=== PATIENT | male | born 1990 | race Two or more races ===

== ENCOUNTER 2023-03-03 15:42 | Outpatient (REF) | payer MEDICAID, SELFPAY ==
--- NOTE | ~2023-03-03 | XR_ITS ---
EXAMINATION: XR LUMBOSACRAL SPINE WITH OBLIQUES CLINICAL INFORMATION: Back and left sciatic nerve pain. COMPARISON: None available. TECHNIQUE: AP, both oblique, and lateral views of the lumbar spine. Lateral view of the lumbosacral junction. FINDINGS: The vertebral bodies and posterior elements are normal. The disc spaces are preserved and the vertebral alignment is normal. The paraspinal soft tissues are normal. XR/XR lumbar spine 4V min IMPRESSION: Unremarkable lumbar spine.
== END 2023-03-03 15:43 | disposition home or self-care (01) ==
LOC: HO.HHCX 15:42
PROVIDERS: Visit Provider Internal Medicine
DX: M54.32 Sciatica, left side (principal)
CPT/HCPCS: 72110

== ENCOUNTER 2023-06-15 15:18 | Outpatient (REF) | payer MEDICAID, SELFPAY ==
--- NOTE | ~2023-06-15 | XR_ITS ---
EXAMINATION: XR LUMBOSACRAL SPINE CLINICAL INFORMATION: Left sciatic nerve pain COMPARISON: Lumbar spine February 23, 2023 TECHNIQUE: Three views of the lumbosacral spine. FINDINGS: There is a transitional vertebrae with articulation of the transverse process with the sacrum bilaterally. Normal height and alignment. No fracture. No focal bone lesion or bone destruction. Lumbar disc heights are normal. Facet joints are normal. Sacroiliac joints are normal. XR/XR lumbar spine 2-3V IMPRESSION: Normal lumbar spine.
== END 2023-06-15 15:19 | disposition home or self-care (01) ==
LOC: HO.HHCX 15:18
PROVIDERS: Visit Provider Internal Medicine
DX: M54.32 Sciatica, left side (principal)
CPT/HCPCS: 72100

== ENCOUNTER 2023-06-15 15:44 | Outpatient (REF) | payer MEDICAID, SELFPAY ==
[2023-06-15 17:34] LABS: MANUAL DIFF FLAG NO
[2023-06-15 17:44] LABS: Basophils Percent Auto 0.3 % (0-2); Eosinophils Absolute Auto 0.2 X10*3/uL (0.0-0.4); Eosinophils Percent Auto 1.9 % (0-4); Hematocrit 42.8 % (42.0-52.0); Hemoglobin 13.5 g/dl (14.0-18.0); Imm Gran Abs Auto 0.03 X10*3/uL (0.00-0.03); Imm Gran Pct Auto 0.3 % (0.0-0.4); Lymphocytes Absolute Auto 2.1 X10*3/uL (1.2-4.9); Lymphocytes Percent Auto 20.5 % (20-40); Mean Corpuscular HGB Conc 31.5 g/dl (31.0-36.0); Mean Corpuscular Hemoglobin 27.7 pg (27.0-33.0); Mean Corpuscular Volume 87.9 fL (80.0-98.0); Mean Platelet Volume 12.5 fL (9.4-12.4); Monocytes Absolute Auto 0.6 X10*3/uL (0.1-1.2); Monocytes Percent Auto 5.7 % (2-11); Neutrophils Absolute Auto 7.4 x10*3/uL (2.0-8.3); Neutrophils Percent Auto 71.3 % (45-73); Platelet Count 272 X10*3/uL (160-400); Red Blood Count 4.87 X10*6/uL (4.60-5.80); Red Cell Distribution Width 13.2 % (11.0-16.0); White Blood Count 10.4 X10*3/uL (4.8-10.8)
[2023-06-15 17:53] LABS: Alanine Aminotransferase 23 U/L (0-40); Albumin Level 4.5 g/dL (3.5-5.0); Alkaline Phosphatase 57 U/L (39-117); Anion Gap 12 (12-20); Aspartate Amino Transferase 20 U/L (5-37); Bilirubin Total 0.3 mg/dL (0.0-1.0); Blood Urea Nitrogen 14 mg/dL (9-16); Carbon Dioxide 31 mmol/L (22-29); Chloride 104 mmol/L (96-108); Cholesterol 156 mg/dL (<200); Estimated Glomerular Filt Rate > 60; Glucose Random 83 mg/dL (60-115); HDL Cholesterol 53 mg/dL (>40); LDL Cholesterol Calculated 88 mg/dL (<100); Potassium 3.7 mmol/L (3.3-5.1); Sodium 143 mmol/L (135-145); Total Protein 7.5 g/dL (6.5-8.0); Triglycerides 78 mg/dL (<150)
[2023-06-15 18:10] LABS: TSH reflex Free T4 0.55 uIU/mL (0.32-4.0)
[2023-06-16 07:00] LABS: Estimated Average Glucose 108 mg/dL; Hemoglobin A1c % 5.4 % (<6.0)
[2023-06-16 08:06] LABS: Syphilis Screen Nonreactive (Nonreactive)
[2023-06-16 08:12] LABS: HBS Num1 5.48 mIU/mL (0-7.99); HBc Num1 0.07 S/CO (0.00-0.79); HBsAGNum1 0.43 S/CO (0.00-0.99); HIV AB/AG Nonreactive (Nonreactive); HIV Num 1 0.07 S/CO (0.00-0.99); Hepatitis B Core Antibody Nonreactive (Nonreactive); Hepatitis B Surface Antigen Negative (Negative); ~HepC Num1 0.04 S/CO (0.00-0.79); ~Hepatitis B Surface Antibody NONREACTIVE (Nonreactive); ~Hepatitis C Antibody Nonreactive (Nonreactive)
[2023-06-16 11:02] LABS: CT PCR NOT DETECTED (Not Detect.); NG PCR NOT DETECTED (Not Detect.)
[2023-06-16 14:37] LABS: H Pylori Breath Test Negative (Negative)
[2023-06-19 12:08] LABS: TS Negative Control Passed; TS Panel A 0; TS Panel B 0; TS Positive Control Passed; TSpotTB Negative (Negative)
== END 2023-06-15 15:45 | disposition home or self-care (01) ==
LOC: HO.HHCL 15:44
PROVIDERS: Visit Provider Student in an Organized Health Care Education/Training Program
DX: Z00.00 Encounter for general adult medical examination without abnormal findings (principal); Z11.4 Encounter for screening for human immunodeficiency virus [HIV]; R10.13 Epigastric pain; Z20.2 Contact with and (suspected) exposure to infections with a predominantly sexual mode of transmission; Z13.29 Encounter for screening for other suspected endocrine disorder; Z13.220 Encounter for screening for lipoid disorders; Z13.1 Encounter for screening for diabetes mellitus
CPT/HCPCS: 0353U; 80053; 80061; 83013; 83036; 84443; 85025; 86481; 86704; 86706; 86780; 86803; 87340; 87389

== ENCOUNTER 2023-12-04 14:47 | Outpatient (REF) | payer MEDICAID, SELFPAY | END 2023-12-04 14:48 | disposition home or self-care (01) | LOC: HO.HHCL 14:47 | PROVIDERS: Visit Provider Student in an Organized Health Care Education/Training Program | DX: Z13.89 Encounter for screening for other disorder (principal) ==

== ENCOUNTER 2023-12-18 01:26 | Emergency (ER) | payer MEDICAID, SELFPAY ==
[2023-12-18] VITALS (7 sets, daily range): BP systolic 101–131; BP diastolic 60–82; PULSE 79–107; RESP 13–16; TEMP 37–37.2; O2SAT 99–100; BMI 24.4
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
[2023-12-18 01:56] LABS: MANUAL DIFF FLAG NO
[2023-12-18 01:57] LABS: Basophils Percent Auto 0.2 % (0-2); Eosinophils Absolute Auto 0.2 X10*3/uL (0.0-0.4); Eosinophils Percent Auto 1.9 % (0-4); Hematocrit 39.5 % (42.0-52.0); Hemoglobin 12.8 g/dl (14.0-18.0); Imm Gran Abs Auto 0.03 X10*3/uL (0.00-0.03); Imm Gran Pct Auto 0.3 % (0.0-0.4); Lymphocytes Absolute Auto 1.9 X10*3/uL (1.2-4.9); Lymphocytes Percent Auto 19.9 % (20-40); Mean Corpuscular HGB Conc 32.4 g/dl (31.0-36.0); Mean Corpuscular Hemoglobin 27.9 pg (27.0-33.0); Mean Corpuscular Volume 86.1 fL (80.0-98.0); Mean Platelet Volume 10.8 fL (9.4-12.4); Monocytes Absolute Auto 0.7 X10*3/uL (0.1-1.2); Monocytes Percent Auto 7.4 % (2-11); Neutrophils Absolute Auto 6.8 x10*3/uL (2.0-8.3); Neutrophils Percent Auto 70.3 % (45-73); Platelet Count 264 X10*3/uL (160-400); Red Blood Count 4.59 X10*6/uL (4.60-5.80); Red Cell Distribution Width 13.2 % (11.0-16.0); White Blood Count 9.6 X10*3/uL (4.8-10.8)
[2023-12-18 02:07] LABS: Ethanol 176 mg/dL
[2023-12-18 02:11] LABS: Alanine Aminotransferase 11 U/L (0-40); Albumin Level 4.6 g/dL (3.5-5.0); Alkaline Phosphatase 52 U/L (39-117); Anion Gap 14 (12-20); Aspartate Amino Transferase 15 U/L (5-37); Bilirubin Direct < 0.2 mg/dL (0.0-0.5); Bilirubin Total 0.2 mg/dL (0.0-1.0); Blood Urea Nitrogen 14 mg/dL (9-16); Calcium 9.2 mg/dL (8.4-10.2); Carbon Dioxide 26 mmol/L (22-29); Chloride 107 mmol/L (96-108); Creatinine Clr Calc Pharmacy 104.8; Estimated Glomerular Filt Rate > 60; Glucose Random 92 mg/dL (60-115); Potassium 3.4 mmol/L (3.3-5.1); Sodium 144 mmol/L (135-145); Total Protein 7.6 g/dL (6.5-8.0)
[2023-12-18] MEDS: 0.9 % Sodium Chloride 1,000 ML 999 ML IV (02:17)
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
[2023-12-18 02:32] LABS: Amphetamine Screen Urine Not Detected (Not Detect); Barbiturates, Urine Not Detected (Not Detect); Benzodiazepines Screen Urine Not Detected (Not Detect); Buprenorphine Scr Positive (Not Detect); Cannabinoid Screen Urine POSITIVE (Not Detect); Cocaine Screen Urine Not Detected (Not Detect); Fentanyl, urine Not Detected (Not Detect); Methadone Screen, Urine Not Detected (Not Detect); Opiate Screen Urine Not Detected (Not Detect); Oxycodone Screen Urine Not Detected (Not Detect); Phencyclidine Screen Urine Not Detected (Not Detect)
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
== END 2023-12-18 05:34 | disposition home or self-care (01) ==
PROVIDERS: Emergency Provider Emergency Medicine Emergency Medical Services
DX: S81.832A Puncture wound without foreign body, left lower leg, initial encounter (principal); M79.605 Pain in left leg; X95.9XXA Assault by unspecified firearm discharge, initial encounter; Y92.410 Unspecified street and highway as the place of occurrence of the external cause; Y99.8 Other external cause status; Z79.899 Other long term (current) drug therapy
CPT/HCPCS: 36415; 73552; 80048; 80076; 80307; 85025; 96360; 99284

== ENCOUNTER 2023-12-19 14:23 | Outpatient (REF) | payer MEDICAID, SELFPAY ==
[2023-12-19 17:14] LABS: Folate 5.5 ng/mL (> or = 4.0); Vitamin B12 258 pg/mL (200-900)
== END 2023-12-19 14:24 | disposition home or self-care (01) ==
LOC: HO.HHCL 14:23
PROVIDERS: Visit Provider Student in an Organized Health Care Education/Training Program
DX: Z00.00 Encounter for general adult medical examination without abnormal findings (principal); E53.8 Deficiency of other specified B group vitamins
CPT/HCPCS: 36415; 82607; 82746

== ENCOUNTER 2024-02-27 15:31 | Outpatient (REF) | payer MEDICAID, SELFPAY ==
[2024-02-27 16:11] LABS: Hematocrit 37.2 % (42.0-52.0); Hemoglobin 12.1 g/dl (14.0-18.0); Mean Corpuscular HGB Conc 32.5 g/dl (31.0-36.0); Mean Corpuscular Hemoglobin 27.9 pg (27.0-33.0); Mean Corpuscular Volume 85.9 fL (80.0-98.0); Mean Platelet Volume 11.8 fL (9.4-12.4); Platelet Count 257 X10*3/uL (160-400); Red Blood Count 4.33 X10*6/uL (4.60-5.80); Red Cell Distribution Width 12.6 % (11.0-16.0); White Blood Count 11.4 X10*3/uL (4.8-10.8)
[2024-02-27 16:28] LABS: Estimated Average Glucose 108 mg/dL; Hemoglobin A1c % 5.4 % (<6.0)
[2024-02-27 16:43] LABS: Alanine Aminotransferase 10 U/L (0-40); Albumin Level 4.6 g/dL (3.5-5.0); Alkaline Phosphatase 58 U/L (39-117); Anion Gap 12 (12-20); Aspartate Amino Transferase 16 U/L (5-37); Bilirubin Total 0.4 mg/dL (0.0-1.0); Blood Urea Nitrogen 11 mg/dL (9-16); Calcium 9.4 mg/dL (8.4-10.2); Carbon Dioxide 28 mmol/L (22-29); Chloride 106 mmol/L (96-108); Estimated Glomerular Filt Rate > 60; Glucose Random 97 mg/dL (60-115); Iron 69 mcg/dL (45-160); Lactate Dehydrogenase 157 U/L (118-273); Percent Iron Saturation 29 % (15-50); Potassium 3.3 mmol/L (3.3-5.1); Sodium 143 mmol/L (135-145); Total Iron Binding Capacity 241 mcg/dL (228-428); Total Protein 7.3 g/dL (6.5-8.0); Unsaturated Iron Binding 172 ug/dL
[2024-02-27 17:03] LABS: Ferritin 137 ng/mL (20-250); TSH reflex Free T4 1.53 uIU/mL (0.32-4.0)
[2024-02-27 17:14] LABS: Folate 6.5 ng/mL (> or = 4.0); Vitamin B12 359 pg/mL (200-900)
[2024-02-28 08:29] LABS: Syphilis Screen Nonreactive (Nonreactive)
[2024-02-28 08:57] LABS: HBS Num1 3.75 mIU/mL (0-7.99); HBc Num1 0.07 S/CO (0.00-0.79); HBsAGNum1 0.34 S/CO (0.00-0.99); HIV AB/AG Nonreactive (Nonreactive); HIV Num 1 0.05 S/CO (0.00-0.99); Hepatitis B Core Antibody Nonreactive (Nonreactive); Hepatitis B Surface Antigen Negative (Negative); ~HepC Num1 0.06 S/CO (0.00-0.79); ~Hepatitis B Surface Antibody NONREACTIVE (Nonreactive); ~Hepatitis C Antibody Nonreactive (Nonreactive)
[2024-02-28 12:14] LABS: CT PCR NOT DETECTED (Not Detect.); NG PCR NOT DETECTED (Not Detect.)
[2024-03-01 05:54] LABS: TS Negative Control Passed; TS Panel A 0; TS Panel B 0; TS Positive Control Passed; TSpotTB Negative (Negative)
== END 2024-02-27 15:32 | disposition home or self-care (01) ==
LOC: HO.HHCL 15:31
PROVIDERS: Visit Provider Student in an Organized Health Care Education/Training Program
DX: A64 Unspecified sexually transmitted disease (principal); D64.9 Anemia, unspecified; R63.4 Abnormal weight loss
CPT/HCPCS: 36415; 80053; 82607; 82728; 82746; 83036; 83540; 83615; 84443; 85027; 86481; 86704; 86706; 86780; 86803; 87340; 87389; 87491; 87591

== ENCOUNTER 2024-07-08 14:49 | Outpatient (REF) | payer MEDICAID, SELFPAY ==
[2024-07-08 16:21] LABS: MANUAL DIFF FLAG NO
[2024-07-08 16:26] LABS: Basophils Percent Auto 0.3 % (0-2); Eosinophils Absolute Auto 0.4 X10*3/uL (0.0-0.4); Eosinophils Percent Auto 5.9 % (0-4); Hemoglobin 13.5 g/dl (14.0-18.0); Imm Gran Abs Auto 0.02 X10*3/uL (0.00-0.03); Imm Gran Pct Auto 0.3 % (0.0-0.4); Mean Corpuscular HGB Conc 32.1 g/dl (31.0-36.0); Mean Corpuscular Hemoglobin 27.8 pg (27.0-33.0); Mean Corpuscular Volume 86.4 fL (80.0-98.0); Mean Platelet Volume 12.4 fL (9.4-12.4); Monocytes Absolute Auto 0.6 X10*3/uL (0.1-1.2); Monocytes Percent Auto 8.7 % (2-11); Neutrophils Absolute Auto 3.8 x10*3/uL (2.0-8.3); Neutrophils Percent Auto 55.8 % (45-73); Platelet Count 227 X10*3/uL (160-400); Red Blood Count 4.86 X10*6/uL (4.60-5.80); Red Cell Distribution Width 13.2 % (11.0-16.0); Retic HGB Equivalent 31.9 pg (30.0-35.0); Reticulocyte Percent 0.7 % (0.5-1.8); Reticulocytes Absolute 0.035 X10*6/uL (0.026-0.095); White Blood Count 6.8 X10*3/uL (4.8-10.8)
[2024-07-08 17:05] LABS: Erythrocyte Sedimentation Rate 2 MM/HR (0-15)
[2024-07-08 17:18] LABS: Haptoglobin 138 mg/dL (14-258)
[2024-07-08 17:29] LABS: Alanine Aminotransferase 16 U/L (0-40); Albumin Level 4.6 g/dL (3.5-5.0); Alkaline Phosphatase 56 U/L (39-117); Anion Gap 9 (12-20); Aspartate Amino Transferase 18 U/L (5-37); Bilirubin Total 0.4 mg/dL (0.0-1.0); Blood Urea Nitrogen 13 mg/dL (9-16); C Reactive Protein < 0.10 mg/dL (< or = 0.50); Calcium 9.5 mg/dL (8.4-10.2); Carbon Dioxide 29 mmol/L (22-29); Chloride 105 mmol/L (96-108); Estimated Glomerular Filt Rate > 60; Glucose Random 106 mg/dL (60-115); Iron 116 mcg/dL (45-160); Percent Iron Saturation 42 % (15-50); Potassium 3.6 mmol/L (3.3-5.1); Sodium 139 mmol/L (135-145); Total Iron Binding Capacity 276 mcg/dL (228-428); Total Protein 7.3 g/dL (6.5-8.0); Unsaturated Iron Binding 160 ug/dL
[2024-07-08 17:36] LABS: Ferritin 187 ng/mL (20-250)
[2024-07-08 17:54] LABS: Folate 4.8 ng/mL (> or = 4.0); Vitamin B12 254 pg/mL (200-900)
== END 2024-07-08 14:50 | disposition home or self-care (01) ==
LOC: HO.HHCL 14:49
PROVIDERS: Visit Provider Student in an Organized Health Care Education/Training Program
DX: D64.9 Anemia, unspecified (principal)
CPT/HCPCS: 36415; 80053; 82607; 82728; 82746; 83010; 83540; 85025; 85045; 85652; 86140

== ENCOUNTER 2024-12-11 12:08 | Outpatient (REF) | payer MEDICAID, SELFPAY ==
--- OUTSIDE RECORDS SUMMARY | 2024-12-11 13:24 | XMS_ITS | Encounter Summary ---
Author Organization [employer] Address [address] [facility] [address] [place] [address] Care Team Providers Care Box Storage Worker Name Role Phone Carmella Sullivan MD Primary Care Pro vider Reason for Referral * Imaging (STAT) - Authorized Specialty Diagnoses / Procedures Referred By Contac t Referred To Contact Radiology Diagnoses Epigastric pain Weight loss Procedures CT Abdomen Pelvis w/o Contrast Carmella Sullivan MD [address] [place] [address] Phone: tel: fax: [address] Phone: tel: fax: Referral ID Status Reason Start Date Expiration Date V isits Requested Visits Authorized [id number] Authorized 12/11/2024 12/11/2025 1 1 * Consultation (Routine) - Pending Review Specialty Diagnoses / Procedures Referred By Joanie t Referred To Contact Gastroenterology Diagnoses Epigastric pain Carmella Sullivan MD [address] [place] [address] Phone: tel: fax: Referral ID Status Reason Start Date Expiration Date Visits Requested Visits Authorized [id number] Pending Review Specialty Services Required 12/11/2024 12/11/2025 1 1 Encounter Details Date Type Department Care Team (Late st Contact Info) Description 12/11/2024 10:15 AM EDT Office Visit [facility] [address] [place] [phone] Carmella Sullivan MD [address] [place] [address] Annual physical exam (Primary Dx); Epigastric pain; Weight loss Social History Tobacco Use Types Packs/Day Years Used Date Smoking Tobacco: Never Passive Smoke Exposure: Never Smokeless Tobacco: Never Tobacco Cessation:Counseling Given: Not Answered Alcohol Use Standard Drinks/Week Comments Yes 0 (1 standard drink = 0.6 oz pur e alcohol) 5 glasses of rum on weekends Alcohol Answer Date Recorded How often do you have a drink containing alcohol ? 1 06/05/2023 How many drinks containing a lcohol do you have on a typical day when you are drinking? 0 06/05/2023 How often do you have six or more drinks on one occasion? 0 06/05/2023 Depression Answer Date Recorded Patient Health Questionnaire-9 Score 0 12/11/2024 Patient Health Questionnaire-9 Score 0 12/11/2024 Last PHQ-9: Questionnaire Data Not on file 0 12/11/2024 Housing Stability Answer Date Recorded What is your housing situation today? I have elysewon [place] 06/13/[address] you li ve. Do you have problems with any of the following? None of the above 06/13/2024 Food Insecurity Answer Date Recorded Within the past 12 months, y ou worried that your food would run out before you got money to buy more: Never True 06/13/2024 Within the past 12 months,th e food you bought just didn't last and you didn't have enough money to get more: Never True 02/2024 Transportation Answer Date Recorded In the past 12 months, has l ack of transportation kept you from medical appts, meetings, work or from getting things needed for daily living? No 06/13/2024 Utilities Answer Date Recorded In the past 12 months, has t he electric, gas, oil or water company threatened to shut off services in your home? No 06/13/2024 Depression Answer Date Recorded Patient Health Questionnaire-2 Score 0 12/11/2024 Internet Access Answer Date Recorded Internet Access Q1 Yes 06/13/2024 Internet Access Q2 Not on file 06/13/2024 Sex and Gender Information Value Date Recorded Sex Assigned at Male 10/21/2022 2:02 PM EDT Legal Sex Male 1:23 PM EST Gender Identity Male 10/21/2022 2:02 PM EDT Sexual Orientation Straight 10/21/2022 2: 02 PM EDT documented as of this encounter Last Filed Vital Signs Vital Sign Reading Time Taken Comments Blood Pressure 112/81 12/11/2024 10:28 AM EDT Pulse 77 12/11/2024 10:28 AM EDT Temperature 36.6 ??C (97.8 ??F) 12/11/2024 1 0:28 AM EDT Respiratory Rate 20 12/11/2024 10:2 8 AM EDT Oxygen Saturation 98% 12/11/2024 10: 28 AM EDT Inhaled Oxygen Concentration - - Weight 68.4 kg (150 lb 12.8 oz) 025 10:28 AM EDT Height 185.4 cm (6' 1 ) 12/11/2024 10:2 8 AM EDT Body Mass Index 19.9 12/11/2024 10:28 AM EDT documented in this encounter Plan of Treatment Upcoming Encounters Date Type Department Care Team (Late st Contact Info) Description 12/19/2024 3:30 PM EDT Office Visit [facility] [address] [place] [phone] Shea Dougherty MD [address] [place] [phone] 12/24/2024 10:00 AM EDT Office Visit [facility] [address] [place] [address] Jenifer Teixeira, DDS [address] [place] [address] 12/31/2024 1:30 PM EDT Office Visit [facility] [address] [place] [address] Carmella Sullivan MD [address] [place] [address] 01/16/2025 3:45 PM EDT Office Visit [facility] [address] [place] [address] Shea Dougherty MD [address] [place] [address] Scheduled Orders Name Type Priority Associated Diagnoses Orde r Schedule CBC Lab Routine Annual physical exam Expected: 12/11/2024 (Approximate), Expires: 12/11/2025 Chlamydia/N. Gonorrhoeae RNA, TMA, Urogenitial Microbiology Routine Annual physical exam Expected: 12/11/2024 (Approximate), Expires: 12/11/2025 Comprehensive Metabolic Panel Lab Routine Annual physical exam Expected: 12/11/2024 (Approximate), Expires: 12/11/2025 Hemoglobin A1c Lab Routine Annual physical exam Expected: 12/11/2024 (Approximate), Expires: 12/11/2025 Hepatitis B Core Antibody, Total Lab Routine Annual physical exam Expected: 12/11/2024 (Approximate), Expires: 12/11/2025 Hepatitis B Surface Antibody, Qualitative Lab Routine Annual physical exam Expected: 12/11/2024 (Approximate), Expires: 12/11/2025 Hepatitis B surface antigen, EIA Lab Routine Annual physical exam Expected: 12/11/2024 (Approximate), Expires: 12/11/2025 Hepatitis C Antibody with Reflex to HCV, RNA, Quantitative, Real-Time PCR Lab Routine Annual physical exam Expected: 12/11/2024 (Approximate), Expires: 12/11/2025 HIV-1/2 Antigen and Antibodies, Fourth Generation, with Reflexes Lab Routine Annual physical exam Expected: 12/11/2024 (Approximate), Expires: 12/11/2025 Lipid Panel, Standard Lab Routine Annual physical exam Expected: 12/11/2024 (Approximate), Expires: 12/11/2025 Syphilis Screen Lab Routine Annual physical exam Expected: 12/11/2024 (Approximate), Expires: 12/11/2025 TSH with Reflex to Free T4 Lab Routine Annual physical exam Expected: 12/11/2024 (Approximate), Expires: 12/11/2025 Iron And Total Iron Binding Capacity Lab Routine Annual physical exam Expected: 12/11/2024 (Approximate), Expires: 12/11/2025 Ferritin Lab Routine Annual physical exam Expected: 12/11/2024, Expires: 12/11/2025 T-SPOT??.TB Lab Routine Weight loss Expected: 12/11/2024 (Approximate), Expires: 12/11/2025 Urinalysis, Complete, with Reflex to Culture Lab Routine Weight loss Expected: 12/11/2024 (Approximate), Expires: 12/11/2025 Helicobacter pylori, Urea Breath Test Lab Routine Epigastric pain Expected: 12/11/2024 (Approximate), Expires: 12/11/2025 CT Abdomen Pelvis w/o Contrast Imaging STAT Epigastric pain Weight loss Expected: 12/11/2024, Expires: 12/11/2025 Scheduled Referrals Name Type Priority Associated Diagnoses Order Schedule Referral to Gastroenterology Outpatient Referral Routine Epigastric pain Expected: 12/11/2024 (Approximate), Expires: 12/11/2025 documented as of this encounter Goals Goal Patient Goal Type Associated Problems Recent Progress Patient-Stated? Author Keep your medical appointments Lifestyle On track( 025 2:13 PM EDT) Meño Kruger, DONALDO documented as of this encounter Visit Diagnoses Diagnosis Annual physical exam- Primary Routine general medical examination at a health care facility Epigastric pain Abdominal pain, epigastric Weight loss Loss of weight documented in this encounter Additional Health Concerns Assessment Noted Time PHQ-9 Depression Total Score: 0 12/12/19 25 10:29 AM EDT documented as of this encounter Care Teams Box Storage Worker Relationship Specialty Start Date End Date Carmella Sullivan MD [address] [place] [phone] PCP - General Internal Medicine 06/15/23 documented as of this encounter
--- OUTSIDE RECORDS SUMMARY | 2024-12-11 13:24 | XMS_ITS | Encounter Summary ---
Author Organization [employer] Address [address] [facility] [address] [place] [address] Care Team Providers Care Junior Technical Writer Name Role Phone Carmella Sullivan MD Primary Care Pro vider Encounter Details Date Type Department Care Team (Late st Contact Info) Description 03/07/2023 [facility] Management [address] [place] [address] Carmella Otero MD [address] [place] [address] Social History Tobacco Use Types Packs/Day Years Used Date Smoking Tobacco: Never Passive Smoke Exposure: Never Smokeless Tobacco: Never Sex and Gender Information Value Date Recorded Sex Assigned at Male 10/21/2022 2:02 PM EDT Legal Sex Male 1:23 PM EST Gender Identity Male 10/21/2022 2:02 PM EDT Sexual Orientation Straight 10/21/2022 2: 02 PM EDT documented as of this encounter Plan of Treatment Upcoming Encounters Date Type Department Care Team (Late st Contact Info) Description 12/19/2024 3:30 PM EDT Office Visit [facility] [address] [place] [phone] Shea Dougherty MD [address] [place] [address] 12/24/2024 10:00 AM EDT Office Visit [facility] [address] [place] [address] Jenifer Teixeira DDS [address] [place] [address] 12/31/2024 1:30 PM EDT Office Visit [facility] [address] [place] [phone] Carmella Sullivan MD [address] [place] [address] 01/16/2025 3:45 PM EDT Office Visit [address] [address] Shea Dougherty MD [address] [place], [place] [phone] documented as of this encounter Visit Diagnoses Not on filedocumented in this encounter Care Teams Junior Technical Writer Relationship Specialty Start Date End Date Carmella Sullivan MD [address] [place] [phone] PCP - General Internal Medicine 06/15/23 documented as of this encounter
--- OUTSIDE RECORDS SUMMARY | 2024-12-11 13:24 | XMS_ITS | Encounter Summary ---
Author Organization [employer] Address [address] [place] [address] Care Team Providers Care Printing Gray Cloth Tender Name Role Phone Carmella Sullivan MD Primary Care Pro vider Encounter Details Date Type Department Care Team (Latest Contact Info) Description 12/11/2024 Travel Social History Tobacco Use Types Packs/Day Years Used Date Smoking Tobacco: Never Passive Smoke Exposure: Never Smokeless Tobacco: Never Alcohol Use Standard Drinks/Week Comments Yes 0 [...] Description 12/19/2024 3:30 PM EDT Office Visit [facility] [address] [place] [phone] Shea Dougherty MD [address] [place] [address] 12/24/2024 10:00 AM EDT Office Visit [facility] [address] [place] [address] Jenifer Teixeira DDS [address] [place] [address] 12/31/2024 1:30 PM EDT Office Visit [facility] [address] [place] [phone] Carmella Sullivan MD [address] [place] [phone] 01/16/2025 3:45 PM EDT Office Visit [address] [address] Shea Dougherty MD [address] [place] [phone] documented as of this encounter Goals Goal Patient Goal Type Associated Problems Recent Progress Patient-Stated? Author Keep your medical appointments Lifestyle On track( 025 2:13 PM EDT) Meño Kruger RN documented as of this encounter Visit Diagnoses Not on filedocumented in this encounter Additional Health Concerns Assessment Noted Time PHQ-9 Depression Total Score: 0 12/12/19 25 10:29 AM EDT documented as of this encounter Care Teams Printing Gray Cloth Tender Relationship Specialty Start Date End Date Carmella Sullivan MD [address] [place] [phone] PCP - General Internal Medicine 06/15/23 documented as of this encounter
--- OUTSIDE RECORDS SUMMARY | 2024-12-11 13:24 | XMS_ITS | Clinical Summary ---
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 Buprenorphine HCl-Naloxone HCl (Suboxone) 8-2 MG SL filmIndications: Opioid dependence, uncomplicated (CMS/HCC) Place 1 Film under the tongue 2 times daily for 28 days. 56 Film 025 2024 Active psyllium (Metamucil Smooth Texture) 58.6 % powder Take 5.12 g (3 g of fiber) by mouth 2 times daily. 283 g 2 025 2025 Active docusate sodium (Colace) 100 MG capsule Take 1 tab po bid prn constipation 60 capsule 3 Active omeprazole (PriLOSEC) [address] capsuleIndicatio ns:Epigastric pain Take 1 capsule (40 mg) by mouth before breakfast. Do not crush or chew. 30 capsule 2 025 2025 Active Emollient (CeraVe Daily Moisturizing) lotion Apply 1 Application topically Once per day. 87 mL 1 024 2024 Discontinued(O ther) Buprenorphine HCl-Naloxone HCl (Suboxone) 8-2 MG SL filmIndications: Opioid dependence, uncomplicated (CMS/HCC) Place 1 Film under the tongue 2 times daily for 28 days. 56 Film 025 2024 Discontinued(R eorder (will not trigger notification to Pharmacy)) Buprenorphine HCl-Naloxone HCl (Suboxone) 8-2 MG SL filmIndications: Opioid dependence, uncomplicated (CMS/HCC) Place 1 Film under the tongue 2 times daily for 28 days. 56 Film 025 2024 Discontinued(R eorder (will not trigger notification to Pharmacy)) Active Problems Problem Noted Date Diagnosed Date Opioid use disorder in remission 10/29/2024 Weight loss 01/23/2024 Health care maintenance 06/17/2023 Uncomplicated opioid abuse 06/05/2023 Depression, major, single episode, moderate 11/06 Assessment & Plan (03/01/2023 8:29 AM EDT): Assessment: Jeffrey was engaged with active reflective listening and open-ended questions. Assessed symptoms, risks, and social supports with direct questions. Discussed current symptoms intensity and frequency. Emotions were normalized and validated. He identified his job as coping mechanisms and his children as protective factors. Provided psychoeducation around grief process and the importance of allowing himself to feel this emotions. Discussed OP therapy, but Jeffrey is not ready to engage in MH services, he agreed to follow up with me during his OBAT appts. . Provided education around integrated medicine and the options of follow up BE's as needed. Provided contact information should questions or concerns arise. Plan: Jeffrey will continue to engage in effective coping mechanisms that has worked for him and will implement what we discussed today about grief and emotions. Patient with anxiety, restless, poor appetite, sleep disturbance, guilt, sadness, lack of motivation. He denies SI, HI, AVH or self-harm. He lives alone, currently in probation. Patient will benefit from Follow up with this parts data writer during his OBAT appts. At this time Jeffrey Bradley meets criteria for Visit Diagnoses: Problem List Items Addressed This Visit Other Adjustment disorder with mixed anxiety and depressed mood Patient ready to address current needs No Strengths include willing to keep connected with this parts data writer. PLAN: 1. Follow up with [facility]: Recommended for follow-up: during OBAT appts 2. Patient goal is to learn to process his son and maintain sobriety. 3. Behavioral Recommendations a. Use of coping skills b. Keep his OBATs appts c. [facility] follow up for support as needed. Resolved Problems Problem Noted Date Diagnosed Date Resolved Date Abdominal pain, epigastric 06/17/2023 0 01/23/2024 Left sciatic nerve pain 03/03/2023 0603/2024 Assessment & Plan (03/03/2023 3:40 PM EDT): Apply heat on affected area Reactive depression 11/25/2022 11/26/19 23 Encounters * This document contains information received from the source organization and may not represent a complete record from that organization. Date Type Department Care Team Description 12/11/2024 10:15 AM EDT Office Visit [facility] [address] [place] [address] Carmella Sullivan MD Annual physical exam (Primary Dx); Epigastric pain; Weight loss 12/11/2024 Travel 12/10/2024 Telephone [facility] [address] [place] [address] Carmella Sullivan MD CHART PREP 12/09/2024 Refill [facility] [address] [place] [address] Shea Dougherty MD Opioid dependence, uncomplicated (CMS/HCC) 11/28/2024 Patient Outreach [facility] [address] [place], [place] [phone] Carmella Sullivan MD Pre-visit Planning (SDOH negative, Tobacco screening negative. ) 11/21/2024 3:45 PM EDT Office Visit [facility] [address] [place] [address] Shea Dougherty MD Opioid type dependence, continuous (CMS/HCC) (Primary Dx) 11/21/2024 Travel 11/12/2024 Refill [facility] [address] [place] [address] Shea Dougherty MD Opioid dependence, uncomplicated (CMS/HCC) 10/24/2024 3:00 PM EDT Clinical Support [facility] [address] [place] [address] Meño Aggarwal, DONALDO Opioid dependence, uncomplicated (CMS/HCC) (Primary Dx) 10/24/2024 Travel 10/18/2024 Population Health Risk Score [facility] ([facility] Department [address] [phone] Provider, Population Health Generic 10/15/2024 Refill [facility] [address] [place] [address] Shea Dougherty MD Opioid dependence, uncomplicated (CMS/HCC) 10/14/2024 Telephone [facility] [address] [place] [phone] Carmella Sullivan MD May recall 09/25/2024 10:35 AM EST Clinical Support [facility] [address] [place] [address] Meño Aggarwal, DONALDO Opioid type dependence, continuous (CMS/HCC) (Primary Dx) 09/25/2024 Travel 09/20/2024 Refill [facility] [address] [place] [phone] Meño Aggarwal RN Opioid dependence, uncomplicated (CMS/HCC) from Last 3 Months Immunizations Name Administration Dates Next Due Hep A, Adult 11/25/2022 Influenza injectable quadrivalent preservative f ree 06/15/2023 Tdap 06/15/2023 Family History Medical History Relation Name Comments DM2,depression Mother Leukemia Son Relation Name Status Comments Mother Son Social History Tobacco Use Types Packs/Day Years [...] is your housing situation today? I have elyse willingham 06/13/[address] you [...] Orientation Straight 10/21/2022 2: 02 PM EDT Last Filed Vital Signs Vital Sign Reading [...] Mass Index 19.9 12/11/2024 10:28 AM EDT Plan of Treatment Upcoming Encounters Date Type Department Care Team (Late st Contact Info) Description 12/19/2024 3:30 PM EDT Office Visit [facility] [address] [place] [phone] Shea Dougherty MD [address] [place] [address] 12/24/2024 10:00 AM EDT Office Visit [facility] AD[facility] [address] [place] [address] Jenifer Teixeira, DDS [address] [place] [address] 12/31/2024 1:30 PM EDT Office Visit [facility] [address] [place] [address] Carmella Sullivan MD [address] [place] [address] 01/16/2025 3:45 PM EDT Office Visit [facility] [address] [place] [address] Shea Dougherty MD [address] [place] [address] Health Maintenance Due Date Last Done Comments Family Planning (PISQ) 2004 Hepatitis B Vaccines (1 of 3 - 19+ 3-dose series) 2008 COVID-19 Vaccine (2023-2 5 season) 2024 Influenza Vaccine (#1) 2024 06/15/2023 Dental Oral Exam 11/23/2024 05/24/2024, 05/10/2024 Dental Prophylaxis 11/23/2024 05/24/2024 Dental X-Ray: Bitewings 05/11/2025 05/10/2024 Alcohol/Substance Use Screening 06/20/2025 06/20/2024 SDOH Screening 11/28/2025 11/28/2024 Depression Screening 12/11/2025 12/11/2024, 12/11/2024 Tobacco Screening 12/11/2025 12/11/2024 Dental X-Ray: Full Mouth 05/11/2027 05/10/2024 Lipid Panel 06/15/2028 06/15/2023 DTaP/Tdap/Td Vaccines (2 - T d or Tdap) 06/15/2033 06/15/2023 Zoster Vaccines (1 of 2) 2039 RSV Patients and Patients Aged 60 years or older (1 - 1-dose 75+ series) 2064 Hepatitis A Vaccines Aged Out 11/25/2022 No long er eligible based on patient's age to complete this topic HIV Screening Completed 02/27/2024, 06/15/2023, 11/04/2022 Hepatitis C Screening Completed 02/27/2024 , 06/15/2023, 11/04/2022 HIB Vaccines Aged Out No longer eligi ble based on patient's age to complete this topic HPV Vaccines Aged Out No longer eligi ble based on patient's age to complete this topic IPV Vaccines Aged Out No longer eligi ble based on patient's age to complete this topic Meningococcal Vaccine Aged Out No tono regina eligible based on patient's age to complete this topic Pneumococcal Vaccine: Pediatrics (0 to 5 Years) and At-Risk Patients (6 to 49) Years) Aged Out No longer eligible b ased on patient's age to complete this topic RSV under 20 months Aged Out No longe r eligible based on patient's age to complete this topic Rotavirus Vaccines Aged Out No longer eligible based on patient's age to complete this topic Goals Goal Patient Goal Type Associated Problems Recent Progress Patient-Stated? Author Keep your medical appointments Lifestyle On track( 025 2:13 PM EDT) No Meño Aggarwal, premium representative Procedure Name Priority Date/Time Associated Diagnosis Comments POCT BALJINDER-14 URINE DRUG SCREEN Routine 11/21/2024 12:59 PM EDT Opioid type dependence, continuous (CMS/HCC) POCT BALJINDER-14 URINE DRUG SCREEN Routine 10/24/2024 1:41 PM EDT Opioid dependence, uncomplicated (CMS/HCC) POCT BALJINDER-14 URINE DRUG SCREEN Routine 09/25/2024 11:31 AM EST Opioid type dependence, continuous (CMS/HCC) PROPHYLAXIS - ADULT Routine 05/24/2024 8 :00 AM EDT Dental calculus Dental plaque PERIODIC ORAL EVALUATION - ESTABLISHED PATIENT Routine 05/24/2024 8:00 AM EDT INTRAORAL - COMPLETE SERIES OF RADIOGRAPHIC IMAGES Routine 05/10/2024 10:30 AM EDT Tipped teeth Encounter for dental examination Dental caries Dental calculus HEPATITIS C AB W/REFL TO HCV RNA, QN, PCR Routine 02/27/2024 3:38 PM EDT STI (sexually transmitted infection) HIV 1/2 ANTIGEN/ANTIBODY, FOURTH GENERATION W/RFL Routine 02/27/2024 3:38 PM EDT STI (sexually transmitted infection) LIPID PANEL, STANDARD Routine 06/15/2023 3:46 PM EST Annual physical exam from Last 3 Months or Most Recently Relevant to Health Maintenance Results * POCT BALJINDER-14 Urine Drug Screen (11/21/2024 12:59 PM EDT) Only the most recent of3 resultswithin the time period is included. THC Positive Cocaine Screen, Urine Negative Opiate Screen, Urine Negative Methamphetamine Screen Urine Negative Amphetamine Screen, Urine Negative Benzodiazepines Screen, Urine Negative Barbiturate Screen, Urine Negative Methadone Screen, Urine Negative Buprenophine Screen, Urine Positive TCA, Urine Negative MDMA Urine Negative ng/mL Oxycodone Screen, Urine Negative Phencyclidine (PCP), Urine Negative Fentanyl, Urine Negative Urine Urine specimen obtained by clean catch procedure / Unknown 11/21/2024 12:59 PM EDT Shea Dougherty MD POINT OF CARE TEST ENTER/MORENA T ORDERABLES Final Result * Hepatitis C Antibody with Reflex to HCV, RNA, Quantitative, Real-Time PCR (02/27/2024 3:38 PM EDT) Hepatitis C Antibody Nonreactive Nonreactive [facility] Comment:Antibodies to HCV no t detected; does not exclude early acuteHCV infection. Blood Venous blood specimen / Unknown 02/27/2024 3:38 PM EDT 02/27/2024 3:58 PM EDT Carmella Castro MD LAB BLOOD ORDERAB LES Final Result Performing Organization Address City/[facility]/ZIP Co de Phone Number [facility] [address] [place] [phone] * HIV-1/2 Antigen and Antibodies, Fourth Generation, with Reflexes (02/27/2024 3:38 PM EDT) HIV AB/AG Nonreactive Nonreactive [facility] Comment:HIV-1 p24 Ag and/or HIV-1/HIV-2 Ab not detected.A test result that is nonreactive does not exclude thepossibility of exposure to or infection with HIV-1 and/orHIV-2. Nonreactive results in this assay for individualswith prior exposure to HIV-1 and/or HIV-2 may be due toantigen and antibody levels that are below the limit ofdetection of this assay.The [employer] HIV Ag/Ab Combo assay result andsupplemental assay results should be interpreted inconjunction with the patient's clinical presentation,history and other laboratory results. If the results areinconsistent with clinical evidence, additional testing issuggested to confirm the result. Blood Venous blood specimen / Unknown 02/27/2024 3:38 PM EDT 02/27/2024 3:58 PM EDT us Carmella Castro MD LAB BLOOD ORDERAB LES Final Result Performing Organization Address [facility]/ZIP Co de Phone Number [facility] [address] [place] [phone] * Lipid Panel, Standard (06/15/2023 3:46 PM EST) Triglycerides 78 <150 mg/dL [facility] Comment:Desirable Triglyceri de: less than 150 mg/dLBorderline High Triglyceride 150-199 mg/dLHigh Triglyceride: 200-499 mg/dLVery High Triglyceride: greater than or equal to 5OO mg/dL Cholesterol 156 <200 mg/dL [facility] Comment:Desirable Cholestero l: less than 200 mg/dLBorderline High Cholesterol: 200-239 mg/dLHigh Cholesterol: greater than 239 mg/dL LDL Cholesterol Calculated 88 <100 mg/dL [facility] Comment:Desirable LDL: less than 100 mg/dLNear Optimal/Above Optimal LDL: 110- 129 mg/dLBorderline High LDL: 130-159 mg/dLHigh LDL: 160-189 mg/dLVery High LDL: greater than or equal to 190 mg/dL HDL Cholesterol 53 >40 mg/dL [facility] Comment:Desirable HDL: great er than 40 mg/dL Note: This HDL assay may give artificially low results in patients with liver disease. Blood Venous blood specimen / Unknown 06/15/2023 3:46 PM EST 06/15/2023 5:30 PM EST us Carmella Castro MD LAB BLOOD ORDERAB LES Final Result 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
--- OUTSIDE RECORDS SUMMARY | 2024-12-11 13:24 | XMS_ITS | Encounter Summary ---
Author Organization [employer] Address [address] [place] [address] Care Team Providers Care Account Associate Name Role Phone Carmella Sullivan MD Primary Care Pro vider Reason for Visit * Reason Onset Date Comments Med Refill 12/09/2024 Encounter Details Date Type Department Care Team (Late st Contact Info) Description 12/09/2024 Refill [facility] [address] [place] [address] Shea Dougherty MD [address] [place] [address] Opioid dependence, uncomplicated (CMS/HCC) Social History Tobacco Use Types Packs/Day Years Used Date Smoking Tobacco: Never Passive Smoke Exposure: Never Smokeless Tobacco: Never Alcohol Use Standard Drinks/Week Comments Yes 0 (1 standard drink = 0.6 oz pur e alcohol) 5 beers on weekends Alcohol Answer Date Recorded How often do you have a drink containing alcohol ? 1 06/05/2023 How many drinks containing a lcohol do you have on a typical day when you are drinking? 0 06/05/2023 How often do you have six or more drinks on one occasion? 0 06/05/2023 Depression Answer Date Recorded Patient Health Questionnaire-9 Score 11 08/01/2024 Patient Health Questionnaire-9 Score 11 08/01/2024 Last PHQ-9: Questionnaire Data Not on file 1 10/02/2023 Housing Stability Answer Date Recorded What is [...] Answer Date Recorded Patient Health Questionnaire-2 Score 6 08/01/2024 Internet Access Answer Date Recorded Internet Access [...] Description 12/19/2024 3:30 PM EDT Office Visit [facility] [address] [place] [phone] Shea Dougherty MD [address] [place] [address] 12/24/2024 10:00 AM EDT Office Visit [facility] ADULT DENTAL [address] [place] [phone] Jenifer Teixeira DDS [address] [place] [phone] 12/31/2024 1:30 PM EDT Office Visit [facility] [address] [place] [phone] Carmella Sullivan MD [address] [place] [phone] 01/16/2025 3:45 PM EDT Office Visit [facility] [address] [place], [place] [phone] Shea Dougherty MD [address] [place], [place] [phone] documented as of this encounter Goals Goal Patient Goal Type Associated Problems Recent Progress Patient-Stated? Author Keep your medical appointments Lifestyle On track( 025 2:13 PM EDT) Meño Kruger RN documented as of this encounter Visit Diagnoses Diagnosis Opioid dependence, uncomplicated (CMS/HCC) documented in this encounter Additional Health Concerns Assessment Noted Time PHQ-9 Depression Total Score: 11 024 10:03 AM EST documented as of this encounter Care Teams Account Associate Relationship Specialty Start Date End Date Carmella Sullivan MD [address] [place] [address] PCP - General Internal Medicine 06/15/23 documented as of this encounter
--- OUTSIDE RECORDS SUMMARY | 2024-12-11 13:24 | XMS_ITS | Encounter Summary ---
Author Organization [employer] Address [address] [place] [address] Care Team Providers Care System Consultant Name Role Phone Carmella Sullivan MD Primary Care Pro vider Reason for Visit * Reason Onset Date Comments CHART PREP 12/10/2024 Encounter Details Date Type Department Care Team ([facility] st Contact Info) Description 12/10/2024 Telephone [facility] [address] [place] [address] Carmella Sullivan MD [address] [place] [address] CHART PREP Social History Tobacco Use Types Packs/Day Years [...] PM EDT documented as of this encounter Miscellaneous Notes * Telephone Encounter - Janet Prajpaati [place] - 12/10/2024 3:18 PM EDT Chart Prep Labs: done FROM 07/08/24 Images: not applicable Referrals: not applicable Vaccines due: Hep B Screenings: not applicable Overdue care gaps: AMAYA-7 documented in this encounter Plan of Treatment Upcoming Encounters Date Type Department Care Team (Late st Contact Info) Description 12/19/2024 3:30 PM EDT Office Visit [facility] [address] [place] [address] Shea Dougherty MD [address] [place] [address] 12/24/2024 10:00 AM EDT Office Visit [facility] ADULT DENTAL [address] [place] [address] Jenifer Teixeira DDS [address] [place] [address] 12/31/2024 1:30 PM EDT Office Visit [facility] [address] [place] [phone] Carmella Sullivan MD [address] [place] [address] 01/16/2025 3:45 PM EDT Office Visit [facility] [address] [place] [phone] Shea Dougherty MD [address] [place] [address] documented as of this encounter Goals Goal [...] documented as of this encounter Care Teams System Consultant Relationship Specialty Start Date End Date Carmella Sullivan MD [address] [place] [phone] PCP - General Internal Medicine 06/15/23 documented as of this encounter
[2024-12-11 13:34] LABS: Appearance Urine Clear; Color Urine Dark Yellow; Glucose Urine UA Negative (Negative); Leukocyte Esterase Urine Trace (Negative); Nitrite Urine Negative (Negative); PH 5.5 (5.0-9.0); Specific Gravity - Urine >= 1.030 (1.005-1.025); UMIC TRIGGER UACC YES; Urine Blood Negative (Negative); Urine Ketones 15 mg/dL (Negative); Urine Protein Trace mg/dL (Neg-Trace)
[2024-12-11 13:38] LABS: Bacteria Urine None Seen (None Seen); Hyaline Casts Urine 0-2 /LPF (0-2); RBC Urine 0-2 /HPF (0-2); UACC Culture Trigger YES; WBC Urine 21-50 /HPF (0-5)
[2024-12-11 13:57] LABS: Hematocrit 42.9 % (42.0-52.0); Mean Corpuscular HGB Conc 32.6 g/dl (31.0-36.0); Mean Corpuscular Hemoglobin 27.2 pg (27.0-33.0); Mean Corpuscular Volume 83.5 fL (80.0-98.0); Mean Platelet Volume 12.1 fL (9.4-12.4); Platelet Count 256 X10*3/uL (160-400); Red Blood Count 5.14 X10*6/uL (4.60-5.80); Red Cell Distribution Width 12.1 % (11.0-16.0); White Blood Count 6.4 X10*3/uL (4.8-10.8)
[2024-12-11 14:15] LABS: Estimated Average Glucose 108 mg/dL; Hemoglobin A1C 128.7553 umol/L; Hemoglobin A1c % 5.4 % (<6.0); Total Hemoglobin (HGBA1C) 3651.3098 umol/L
[2024-12-11 14:22] LABS: Alanine Aminotransferase 17 U/L (0-40); Alkaline Phosphatase 58 U/L (39-117); Anion Gap 13 (12-20); Aspartate Amino Transferase 22 U/L (5-37); Bilirubin Total 0.5 mg/dL (0.0-1.0); Blood Urea Nitrogen 13 mg/dL (9-16); Carbon Dioxide 28 mmol/L (22-29); Chloride 103 mmol/L (96-108); Cholesterol 173 mg/dL (<200); Estimated Glomerular Filt Rate > 60; Glucose Random 85 mg/dL (60-115); HDL Cholesterol 64 mg/dL (>40); Iron 96 mcg/dL (45-160); LDL Cholesterol Calculated 101 mg/dL (<100); Percent Iron Saturation 39 % (15-50); Sodium 140 mmol/L (135-145); Total Iron Binding Capacity 245 mcg/dL (228-428); Total Protein 7.9 g/dL (6.5-8.0); Triglycerides 43 mg/dL (<150); Unsaturated Iron Binding 149 ug/dL
[2024-12-11 14:27] LABS: Ferritin 290 ng/mL (20-250); TSH reflex Free T4 0.88 uIU/mL (0.32-4.0)
[2024-12-11 14:56] LABS: CT PCR NOT DETECTED (Not Detect.); NG PCR NOT DETECTED (Not Detect.)
[2024-12-12 04:15] LABS: Syphilis Screen Nonreactive (Nonreactive)
[2024-12-12 04:39] LABS: HBS Num1 3.54 mIU/mL (0-7.99); HBsAGNum1 0.35 S/CO (0.00-0.99); HIV AB/AG Nonreactive (Nonreactive); HIV Num 1 0.07 S/CO (0.00-0.99); Hepatitis B Core Antibody Nonreactive (Nonreactive); Hepatitis B Surface Antigen Negative (Negative); ~HepC Num1 0.07 S/CO (0.00-0.79); ~Hepatitis B Surface Antibody NONREACTIVE (Nonreactive); ~Hepatitis C Antibody Nonreactive (Nonreactive)
[2024-12-12 08:59] LABS: H Pylori Breath Test Negative (Negative)
[2024-12-13 22:43] LABS: TS Negative Control Passed; TS Panel A 2; TS Panel B 2; TS Positive Control Passed; TSpotTB Negative (Negative)
== END 2024-12-11 12:09 | disposition home or self-care (01) ==
LOC: HO.HHCL 12:08
PROVIDERS: Visit Provider Student in an Organized Health Care Education/Training Program
DX: Z00.00 Encounter for general adult medical examination without abnormal findings (principal); R63.4 Abnormal weight loss; R10.13 Epigastric pain
CPT/HCPCS: 80053; 80061; 81001; 82728; 83013; 83036; 83540; 84443; 85027; 86481; 86704; 86706; 86780; 86803; 87086; 87340; 87389; 87491; 87591

== ENCOUNTER 2024-12-13 14:15 | Outpatient (REF) | payer MEDICAID, SELFPAY ==
--- OUTSIDE RECORDS SUMMARY | 2024-12-13 14:23 | XMS_ITS | Encounter Summary ---
Author Organization [employer] Address [address] [facility] [address] [place] [address] Care Team Providers Care Metal [employer]ing Crib Attendant Name Role Phone Carmella Sullivan MD Primary Care Pro vider Reason for Referral * Consultation (Routine) - Authorized Specialty Diagnoses / Procedures Referred By Joanie winston Referred To Contact Gastroenterology Diagnoses Epigastric pain Carmella Sullivan MD [address] [place] [phone] Phone: tel: fax: [facility] Referral ID Status Reason Start Date Expiration Date Visits Requested Visits Authorized [id number] Authorized Specialty Services Required 12/11/2024 12/11/2025 6 6 Reason for Visit * Reason Comments Annual Exam Encounter Details Date Type Department Care Team (Late st Contact Info) Description 12/11/2024 10:15 AM EDT Office Visit [facility] [address] [place] [address] [phone] Carmella Sullivan MD [address] [place] [phone] Annual physical exam (Primary Dx); Epigastric pain; Weight loss; Health care maintenance; Depression, major, single episode, moderate (CMS/HCC) Social History Tobacco Use Types Packs/Day [...] 10:28 AM EDT documented in this encounter Progress Notes * Carmella Castro MD - 12/11/2024 10:15 AM EDT Subjective Patient ID: Jeffrey Bradley is a 34 y.o. male who presents for annual exam HPI 34 y o M from [place] (lives [place] since 2014) w PMX of OUD(percocet) now on suboxone,depression Comes for annual exam Pt reports to be concern w weight loss , Lost 47 pounds in almost 2 y but was stable until last time seen in clinic however states since last 6 months pt started having abdominal pain in epigastrium ,burning can be intense ,associate w nausea and vomit ,anorexia , also describes constipation,also RLQ pain ,denies melenas nor BRP and SP discomfort w urination but denies dysuria nor urgency . Denies fever,chills nor LDN, denies dysphagia nor odynophagia ,denies chronic cough,SOB nor CP. Denies hx of Tb contacts ,has hx of incarceration 3 y ago ,son had leukemia no other malignancies in fx. No hx of tobacco smoker ,5 glasses of rum on weekends On suboxone ------- Assessment and Plan: Health care maintenance -Annual exam 12/2024 -vaccines s/p Hep Ax1,COVID 19 x2 advised for booster vaccine but refuse, tdap 06/2023, Hep B not immune -refuse vaccine ,Refuse COVID 19 booster - Hx of OUD -not using percocet since 2014 ,denies hx of IVDU -continue to f at [facility] on suboxone Depression Now PHQ9 0 AMAYA 0 -f w BH at [facility] team w Abby R Weight loss Epigastric /RLQ Pain Constipation 07/2024 iron panel wnl, retic count wnl, ESR and CRP wnl, haptoglobin wnl, hb 13.5 -02/2024 , WBC 11.4, Hb 12.1 <--- 13.5 ,vit B12 and folic acid wnl, ferritin and iron panel wnl, T-spot neg, LDH 157 -06/2023 hb 13.5-slight low w normal MCV ,denies any BRPR,melenas nor hematuria -06/2023 labs all wnl, Quantiferon neg and H pylori UBT neg Pt reports to be concern w weight loss , Lost 47 pounds in almost 2 y but was stable until last time seen in clinic however states since last 6 months pt started having abdominal pain in epigastrium ,burning can be intense ,associate w nausea and vomit ,anorexia , also describes constipation,also RLQ pain ,denies melenas nor BRP and SP discomfort w urination but denies dysuria nor urgency . Denies fever,chills nor LDN, denies dysphagia nor odynophagia ,denies chronic cough,SOB nor CP. Denies hx of Tb contacts ,has hx of incarceration 3 y ago ,son had leukemia no other malignancies in fx. No hx of tobacco smoker ,5 glasses of rum on weekends On suboxone Concern w pt abd pain specially epigastric and weight loss -will start w annual labs,UA w reflex , Tb test, h pylori UBT off any antiacids -GI referred today -CT abd/Pelvis w contrast -start omeprazole 40 daily -colace and mtamucil -alarm signs and symptoms discussed Review of Systems Constitutional: Positive for unexpected weight change. HENT: Negative. Eyes: Negative. Respiratory: Negative. Cardiovascular: Negative. Gastrointestinal: Positive for abdominal pain and constipation. Genitourinary: Positive for difficulty urinating. Musculoskeletal: Negative. Neurological: Negative. Psychiatric/Behavioral: Negative. Objective BP 112/81 (BP Location: Left arm, Patient Position: Sitting, BP Cuff Size: Adult) Pulse 77 Temp97.8 ??F (36.6 ??C) (Temporal) Resp 20 Ht 6' 1 (1.854 m) Wt 150 lb 12.8 oz (68.4 kg) SpO2 98% BMI 19.90 kg/m?? Physical Exam Constitutional: Appearance: Normal appearance. He is obese. HENT: Head: Normocephalic and atraumatic. Right Ear: Tympanic membrane and ear canal normal. Left Ear: Tympanic membrane and ear canal normal. Mouth/Throat: Pharynx: Oropharynx is clear. Eyes: General: No scleral icterus. Extraocular Movements: Extraocular movements intact. Pupils: Pupils are equal, round, and reactive to light. Cardiovascular: Rate and Rhythm: Normal rate and regular rhythm. Heart sounds: No murmur heard. Pulmonary: Effort: Pulmonary effort is normal. Breath sounds: Normal breath sounds. Abdominal: General: There is no distension. Palpations: Abdomen is soft. There is no mass. Tenderness: There is abdominal tenderness (epigastrium > RLQ > SP area pain). There is no guarding or rebound. Hernia: No hernia is present. Genitourinary: Penis: Normal. Testes: Normal. Comments: Noted subdermal foreign bodies : reported as implanted in custodial w no signs of infection Musculoskeletal: General: Normal range of motion. Cervical back: Normal range of motion and neck supple. Lymphadenopathy: Head: Right side of head: No submandibular adenopathy. Left side of head: No submandibular adenopathy. Cervical: No cervical adenopathy. Upper Body: Right upper body: No supraclavicular or axillary adenopathy. Left upper body: No supraclavicular or axillary adenopathy. Lower Body: No right inguinal adenopathy. No left inguinal adenopathy. Skin: General: Skin is warm. Neurological: General: No focal deficit present. Mental Status: He is alert and oriented to person, place, and time. Psychiatric: Mood and Affect: Mood normal. Behavior: Behavior normal. Assessment/Plan Problem List Items Addressed This Visit Depression, major, single episode, moderate (CMS/HCC) Health care maintenance Weight loss Relevant Orders T-SPOT??.TB Urinalysis, Complete, with Reflex to Culture (Completed) Abdominal pain Relevant Medications omeprazole (PriLOSEC) [address] capsule Other Relevant Orders Referral to Gastroenterology Helicobacter pylori, Urea Breath Test Other Visit Diagnoses Annual physical exam - Primary Relevant Orders CBC (Completed) Chlamydia/N. Gonorrhoeae RNA, TMA, Urogenitial (Completed) Comprehensive Metabolic Panel (Completed) Hemoglobin A1c (Completed) Hepatitis B Core Antibody, Total Hepatitis B Surface Antibody, Qualitative Hepatitis B surface antigen, EIA Hepatitis C Antibody with Reflex to HCV, RNA, Quantitative, Real-Time PCR HIV-1/2 Antigen and Antibodies, Fourth Generation, with Reflexes Lipid Panel, Standard (Completed) Syphilis Screen TSH with Reflex to Free T4 (Completed) Iron And Total Iron Binding Capacity (Completed) Ferritin (Completed) documented in this encounter Plan of Treatment Upcoming Encounters Date Type Department Care Team (Late st Contact Info) Description 12/19/2024 3:30 PM EDT Office Visit [facility] [address] [place] [phone] Shea Dougherty MD [address] [place] [phone] 12/24/2024 10:00 AM EDT Office Visit [facility] [address] [place] [phone] Jenifer Teixeira DDS [address] [place] [phone] 12/31/2024 1:30 PM EDT Office Visit [address] [address] Carmella Sullivan MD [address] [place] [phone] 01/16/2025 3:45 PM EDT Office Visit [address] [address] Shea Dougherty MD [address] [place] [phone] Scheduled Orders Name Type Priority Associated Diagnoses Orde r Schedule T-SPOT??.TB Lab Routine Weight loss Expected: 12/11/2024 (Approximate), Expires: 12/11/2025 Scheduled Referrals Name Type Priority Associated Diagnoses Order Schedule Referral to Gastroenterology Outpatient Referral Routine Epigastric pain Expected: 12/11/2024 (Approximate), Expires: 12/11/2025 documented as of this encounter Goals Goal Patient Goal Type Associated Problems Recent Progress Patient-Stated? Author Keep your medical appointments Lifestyle On track( 025 2:13 PM EDT) No Meño Aggarwal, RN documented as of this encounter Procedures Procedure Name Priority Date/Time Associated Diagnosis Comments SYPHILIS SCREEN Routine 12/11/2024 12:11 PM EDT Annual physical exam URINALYSIS, COMPLETE, WITH REFLEX TO CULTURE Routine 12/11/2024 12:11 PM EDT Weight loss TSH W/REFLEX TO FT4 Routine 12/11/2024 1 2:11 PM EDT Annual physical exam HEPATITIS C AB W/REFL TO HCV RNA, QN, PCR Routine 12/11/2024 12:11 PM EDT Annual physical exam IRON AND TOTAL IRON BINDING CAPACITY Routine 12/11/2024 12:11 PM EDT Annual physical exam CHLAMYDIA/N. GONORRHOEAE RNA, TMA, UROGENITAL Routine 12/11/2024 12:11 PM EDT Annual physical exam HEPATITIS B SURFACE ANTIGEN, EIA Routine 12/11/2024 12:11 PM EDT Annual physical exam HEPATITIS B CORE AB TOTAL Routine 12/11/2024 12:11 PM EDT Annual physical exam HIV 1/2 ANTIGEN/ANTIBODY, FOURTH GENERATION W/RFL Routine 12/11/2024 12:11 PM EDT Annual physical exam HEPATITIS B SURFACE ANTIBODY, QUALITATIVE Routine 12/11/2024 12:11 PM EDT Annual physical exam CBC Routine 12/11/2024 12:11 PM EDT Annual physical exam HEMOGLOBIN A1C Routine 12/11/2024 12:11 PM EDT Annual physical exam FERRITIN Routine 12/11/2024 12:11 PM EDT Annual physical exam LIPID PANEL, STANDARD Routine 12/11/2024 12:11 PM EDT Annual physical exam COMPREHENSIVE METABOLIC PANEL Routine 12/11/2024 12:11 PM EDT Annual physical exam HELICOBACTER PYLORI, UREA BREATH TEST Routine 12/11/2024 11:58 AM EDT Epigastric pain documented in this encounter Results * (ABNORMAL) Urinalysis, Complete, with Reflex to Culture (12/11/2024 12:11 PM EDT) Color Urine Dark Yellow [facility] Appearance Urine Clear [facility] PH 5.5 5.0 - 9.0 [facility] Glucose Urine UA Negative Negative mg/dL [facility] Urine Blood Negative Negative [facility] Specific [place] - Urine >=1.030(H) 1.005 - 1.025 [facility] Urine Protein Trace Neg-Trace mg/dL [facility] Urine Ketones 15 Negative mg/dL [facility] Nitrite Urine Negative Negative [facility] Leukocyte Esterase Urine Trace(A) Negative [facility] RBC Urine 0-2 0 - 2 /HPF [facility] Urine WBC 21-50(A) 0 - 5 /HPF [facility] Urine Squamous Epithelial Cell 6-10 0 - 2 /HPF [facility] Urine Bacteria None Seen None Seen [facility] Hyaline Casts, Urine 0-2 0 - 2 /LPF [facility] Urine 12/11/2024 12:1 1 PM EDT 12/11/2024 1:12 PM EDT Narrative [facility] - 12/11/2024 1:43 PM EDT Urine, Clean Catch us Carmella Castro MD LAB URINE ORDERAB LES Final Result [facility] [address] [place] [phone] * (ABNORMAL) Ferritin (12/11/2024 12:11 PM EDT) Ferritin 290(H) 20 - 250 ng/mL [facility] Blood Venous blood specimen / Unknown 12/11/2024 12:11 PM EDT 12/11/2024 1:38 PM EDT us Carmella Castro MD LAB BLOOD ORDERAB LES Final Result Performing Organization Address [facility]/ZIP Co de Phone Number [facility] [address] [place] [phone] * Iron And Total Iron Binding Capacity (12/11/2024 12:11 PM EDT) Iron 96 45 - 160 mcg/dL [facility] Total Iron Binding Capacity 245 228 - 428 mcg/dL [facility] Percent Iron Saturation 39 15 - 50 % [facility] Unsaturated Iron Binding 149 ug/dL [facility] Blood Venous blood specimen / Unknown 12/11/2024 12:11 PM EDT 12/11/2024 1:38 PM EDT us Carmella Castro MD LAB BLOOD ORDERAB LES Final Result Performing Organization Address [facility]/ZIP Co de Phone Number [facility] [address] [place] [phone] * TSH with Reflex to Free T4 (12/11/2024 12:11 PM EDT) TSH reflex Free T4 0.88 0.32 - 4.0 uIU/mL [facility] Blood 12/11/2024 12:1 1 PM EDT 12/11/2024 1:38 PM EDT us Carmella Castro MD LAB BLOOD ORDERAB LES Final Result Performing Organization Address City/[facility]/ZIP Co de Phone Number [facility] [address] [place] [phone] * Syphilis Screen (12/11/2024 12:11 PM EDT) Syphilis Screen Nonreactive Nonreactive [facility] Blood 12/11/2024 12:1 1 PM EDT 12/11/2024 1:28 PM EDT us Carmella Castro MD LAB BLOOD ORDERAB LES Final Result Performing Organization Address City/[facility]/ZIP Co de Phone Number [facility] [address] [place] [phone] * (ABNORMAL) Lipid Panel, Standard (12/11/2024 12:11 PM EDT) [facility] Triglycerides 43 <150 mg/dL [facility] Comment:Desirable Triglyceri de: less than 150 mg/dLBorderline High Triglyceride 150-199 mg/dLHigh Triglyceride: 200-499 mg/dLVery High Triglyceride: greater than or equal to 5OO mg/dL Cholesterol 173 <200 mg/dL [facility] Comment:Desirable Cholestero l: less than 200 mg/dLBorderline High Cholesterol: 200-239 mg/dLHigh Cholesterol: greater than 239 mg/dL LDL Cholesterol Calculated 101(H) <100 mg/dL [facility] Comment:Desirable LDL: less than 100 mg/dLNear Optimal/Above Optimal LDL: 110- 129 mg/dLBorderline High LDL: 130-159 mg/dLHigh LDL: 160-189 mg/dLVery High LDL: greater than or equal to 190 mg/dL HDL Cholesterol 64 >40 mg/dL [facility] Comment:Desirable HDL: great er than 40 mg/dL Note: This HDL assay may give artificially low results in patients with liver disease. Blood Venous blood specimen / Unknown 12/11/2024 12:11 PM EDT 12/11/2024 1:38 PM EDT Carmella Castro MD LAB BLOOD ORDERAB LES Final Result Performing Organization Address City/[facility]/ZIP Co de Phone Number [facility] [address] [place] [phone] * HIV-1/2 Antigen and Antibodies, Fourth Generation, with Reflexes (12/11/2024 12:11 PM EDT) HIV AB/AG Nonreactive Nonreactive [facility] Comment:HIV-1 p24 Ag and/or HIV-1/HIV-2 Ab not detected.A test result that is nonreactive does not exclude thepossibility of exposure to or infection with HIV-1 and/orHIV-2. Nonreactive results in this assay for individualswith prior exposure to HIV-1 and/or HIV-2 may be due toantigen and antibody levels that are below the limit ofdetection of this assay.The [employer] HIV Ag/Ab Combo assay result andsupplemental assay results should be interpreted inconjunction with the patient's clinical presentation,history and other laboratory results. If the results areinconsistent with clinical evidence, additional testing issuggested to confirm the result. Blood Venous blood specimen / Unknown 12/11/2024 12:11 PM EDT 12/11/2024 1:28 PM EDT us Carmella Castro MD LAB BLOOD ORDERAB LES Final Result Performing Organization Address [facility]/ZIP Co de Phone Number [facility] [address] [place] [phone] * Hepatitis C Antibody with Reflex to HCV, RNA, Quantitative, Real-Time PCR (12/11/2024 12:11 PM EDT) Pathologist [facility] Hepatitis C Antibody Nonreactive Nonreactive [facility] Comment:Antibodies to HCV no t detected; does not exclude early acuteHCV infection. Blood Venous blood specimen / Unknown 12/11/2024 12:11 PM EDT 12/11/2024 1:28 PM EDT us Carmella Castro MD LAB BLOOD ORDERAB LES Final Result Performing Organization Address [facility]/ZIP Co de Phone Number [facility] [address] [place] [phone] * Hepatitis B surface antigen, EIA (12/11/2024 12:11 PM EDT) Hepatitis B Surface Ag Negative Negative [facility] Blood Venous blood specimen / Unknown 12/11/2024 12:11 PM EDT 12/11/2024 1:28 PM EDT us Carmella Castro MD LAB BLOOD ORDERAB LES Final Result Performing Organization Address City/[facility]/ZIP Co de Phone Number [facility] [address] [place] [phone] * Hepatitis B Surface Antibody, Qualitative (12/11/2024 12:11 PM EDT) ~Hepatitis B Surface Antibody NONREACTIVE Nonreactive [facility] Comment:Nonreactive: < 8.00 mIU/mL Blood Venous blood specimen / Unknown 12/11/2024 12:11 PM EDT 12/11/2024 1:28 PM EDT us Carmella Castro MD LAB BLOOD ORDERAB LES Final Result Performing Organization Address [facility] Co de Phone Number [facility] [address] [place] [phone] * Hepatitis B Core Antibody, Total (12/11/2024 12:11 PM EDT) Pathologist [facility] Hepatitis B Core Antibody Nonreactive Nonreactive [facility] Blood Venous blood specimen / Unknown 12/11/2024 12:11 PM EDT 12/11/2024 1:28 PM EDT us Carmella Castro MD LAB BLOOD ORDERAB LES Final Result Performing Organization Address City/[facility]/ZIP Co de Phone Number [facility] [address] [place] [phone] * Hemoglobin A1c (12/11/2024 12:11 PM EDT) Hemoglobin A1c 5.4 <6.0 % [facility] Comment:Hemoglobin A1C Refer ence Range Adults: 4.8 - 6.0 % Non diabetic: < 6.0 % Goal: < 7.0 %Additional Action Suggested: > 8.0 %Note: Hemoglobin A1c results are invalid for patients with abnormal amounts of HbF. Blood transfusions may impact the HbA1c concentration in the patient sample. Estimated Average Glucose 108 mg/dL [facility] Comment:eAG = Estimated ave rage glucose which is %A1C expressed asaverage glucose, using the formula of the [id number] Glucose study (ADAG), Diabetes Care, Vol.31,#8,2007 Blood Venous blood specimen / Unknown 12/11/2024 12:11 PM EDT 12/11/2024 1:38 PM EDT us Carmella Castro MD LAB BLOOD ORDERAB LES Final Result [facility] [address] [place] [phone] * Comprehensive Metabolic Panel (12/11/2024 12:11 PM EDT) Pathologist [facility] Sodium 140 135 - 145 mmol/L [facility] Potassium 4.0 3.3 - 5.1 mmol/L [facility] Chloride 103 96 - 108 mmol/L [facility] Carbon Dioxide 28 22 - 29 mmol/L [facility] Anion Gap 13 12 - 20 [facility] Urea Nitrogen (BUN) 13 9 - 16 mg/dL [facility] Creatinine, Serum 0.99 0.5 - 1.4 mg/dL [facility] Estimated Glomerular Filt Rate >60 [facility] Comment:Chronic Kidney Disea se: Estimated GFR < 60 mL/min/1.81j8Cromzi Kidney Disease: Estimated GFR < 15 mL/min/1.73m2 Glucose 85 60 - 115 mg/dL [facility] Calcium 10.0 8.4 - 10.2 mg/dL [facility] Bilirubin, Total 0.5 0.0 - 1.0 mg/dL [facility] Aspartate Amino Transferase 22 5 - 37 U/L [facility] Alanine Aminotransferase 17 0 - 40 U/L [facility] Total Protein 7.9 6.5 - 8.0 g/dL [facility] Albumin Level 5.0 3.5 - 5.0 g/dL [facility] Alkaline Phosphatase 58 39 - 117 U/L [facility] Blood Venous blood specimen / Unknown 12/11/2024 12:11 PM EDT 12/11/2024 1:38 PM EDT Carmella Castro MD LAB BLOOD ORDERAB LES Final Result [facility] [address] [place] [phone] * Chlamydia/N. Gonorrhoeae RNA, TMA, Urogenitial (12/11/2024 12:11 PM EDT) CT PCR NOT DETECTED Not Detect. [facility] Comment:A not detected test result does not exclude the possibilityof infection because test results can be affected byimproper specimen collection, concurrent antibiotic therapy,or the number of organisms in the specimen which may bebelow the sensitivity of the test. As with many diagnostictests, results from the Xpert CT/NG assay should beinterpreted in conjunction with other laboratory andclinical data available to the clinician.Xpert CT/NG performance has not been evaluated in patientsless than 14 years of age. The assay should not be used forthe evaluationof suspected sexual abuse or for other medico-legalindications. Additional testing is recommended in anycircumstance when false positive or false negative resultscould lead to adverse medical, social or psychologicalconsequences. NG PCR NOT DETECTED Not Detect. [facility] Comment:A not detected test result does not exclude the possibilityof infection because test results can be affected byimproper specimen collection, concurrent antibiotic therapy,or the number of organisms in the specimen which may bebelow the sensitivity of the test. As with many diagnostictests, results from the Xpert CT/NG assay should beinterpreted in conjunction with other laboratory andclinical data available to the clinician.Xpert CT/NG performance has not been evaluated in patientsless than 14 years of age. The assay should not be used forthe evaluationof suspected sexual abuse or for other medico-legalindications. Additional testing is recommended in anycircumstance when false positive or false negative resultscould lead to adverse medical, social or psychologicalconsequences. Urine (Urine, Random) 12/11/2024 12:11 PM EDT 12/11/2024 1:12 PM EDT Narrative [facility] - 12/11/2024 2:56 PM EDT Urine Carmella Castro MD LAB MICROBIOLOGY - GENERAL ORDERABLES Final Result [facility] [address] [place] [phone] * CBC (12/11/2024 12:11 PM EDT) White Blood Count 6.4 4.8 - 10.8 X10*3/uL [facility] Red Blood Count 5.14 4.60 - 5.80 X10*6/uL [facility] Hemoglobin 14.0 14.0 - 18.0 g/dl [facility] Hematocrit 42.9 42.0 - 52.0 % [facility] Mean Corpuscular Volume 83.5 80.0 - 98.0 fL [facility] Mean Corpuscular Hemoglobin 27.2 27.0 - 33.0 pg [facility] Mean Corpuscular HGB Conc 32.6 31.0 - 36.0 g/dl [facility] Red Cell Distribution Width 12.1 11.0 - 16.0 % [facility] Platelet Count 256 160 - 400 X10*3/uL [facility] Mean Platelet Volume 12.1 9.4 - 12.4 fL [facility] NRBC Pct Auto 0.0 0.0 - 0.2 /100WBC [facility] NRBC Abs Auto 0.000 0.0 - 0.012 X10*3/uL [facility] [facility] Blood Venous blood specimen / Unknown 12/11/2024 12:11 PM EDT 12/11/2024 1:38 PM EDT us Carmella Castro MD LAB BLOOD ORDERAB LES Final Result Performing Organization Address City/[facility] Co de Phone Number [facility] [address] [place] [phone] * Helicobacter pylori, Urea Breath Test (12/11/2024 11:58 AM EDT) H. pylori Breath Test Negative Negative [facility] Comment:Antimicrobials, prot on pump inhibitors and bismuthpreparations are known to suppress H. pylori. Ingestingthese medications within two weeks prior to performing thebreath test may produce negative test results. A positiveresult is still clinically valid. Breath Oral cavity structure / Unknown 12/11/2024 11:58 AM EDT 12/11/2024 5:04 PM EDT us Carmella Castro MD LAB BLOOD ORDERAB LES Final Result Performing Organization Address [facility] Co de Phone Number [facility] [address] [place] [phone] documented in this encounter Visit Diagnoses Diagnosis Annual physical exam- Primary Routine general medical examination at a health care facility Epigastric pain Abdominal pain, epigastric Weight loss Loss of weight Health care maintenance Depression, major, single episode, moderate (CMS/HCC) documented in this encounter Additional Health Concerns Assessment Noted Time PHQ-9 Depression Total Score: 0 12/12/19 25 10:29 AM EDT documented as of this encounter Care Teams Metal Bonding Crib Attendant Relationship Specialty Start Date End Date Carmella Sullivan MD [address] [place] [phone] PCP - General Internal Medicine 06/15/23 documented as of this encounter
--- OUTSIDE RECORDS SUMMARY | 2024-12-13 14:23 | XMS_ITS | Encounter Summary ---
Author Organization [employer] Address [address] [facility] 7[address] [place] [address] Care Team Providers Care Counter Pocket Sewer Name Role Phone Carmella Sullivan MD Primary Care Pro vider Reason for Visit * Reason Onset Date Comments Med Refill 12/09/2024 Encounter Details Date Type Department Care Team (Late st Contact Info) Description 12/09/2024 Refill [facility] [address] [place] [address] Shea Dougherty MD [address] [place] [address] Opioid dependence, uncomplicated (CMS/HCC) Social History Tobacco [...] Description 12/19/2024 3:30 PM EDT Office Visit [facility] [address] [place] [phone] Shea Dougherty MD [address] [place] [address] 12/24/2024 10:00 AM EDT Office Visit [facility] [address] [place] [phone] Jenifer Teixeira DDS [address] [place] [phone] 12/31/2024 1:30 PM EDT Office Visit [facility] [address] [place] [address] Carmella Sullivan MD [address] [place] [address] 01/16/2025 3:45 PM EDT Office Visit [facility] [address] [place], [place] [phone] Shea Dougherty MD [address] [place], [place] [phone] documented as of this encounter Goals Goal [...] documented as of this encounter Care Teams Counter Pocket Sewer Relationship Specialty Start Date End Date Carmella Sullivan MD [address] [place] [address] PCP - General Internal Medicine 06/15/23 documented as of this encounter
--- OUTSIDE RECORDS SUMMARY | 2024-12-13 14:23 | XMS_ITS | Encounter Summary ---
Author Organization [employer] Address [address] [facility] [address] [place] [address] Care Team Providers Care Trans Router Name Role Phone Carmella Sullivan MD Primary Care Pro vider Reason for Visit * Reason Onset Date Comments Lab Orders 12/12/2024 Encounter Details Date Type Department Care Team ([facility] st Contact Info) Description 12/12/2024 Telephone [facility] [address] [place] [address] Carmella Sullivan MD [address] [place] [address] Lab Orders Social History Tobacco Use Types Packs/Day Years [...] as of this encounter Miscellaneous Notes * Addendum Note - Caterina Kathleen RN - 12/13/2024 2:01 PM EDTAddended by: CATERINA KATHLEEN on: 12/13/2024 02:01 PM Modules accepted: Orders * Telephone Encounter - Caterina Kathleen RN - 12/13/2024 1:48 PM EDT Telephone call to pt via #[phone], advised pt that Dr Turner would like him to repeat urine sample. Ptverbalized understanding, to come to clinic this afternoon. No further questions. Spoke to Dr Guillen office who requests reorder of urine culture.Pended order. * Telephone Encounter - Caterina Kathleen RN - 12/13/2024 9:13 AM EDT Incoming phone call from [facility] lab. They stated that the mycoplasma/ureaplasma panel can only be added on within 24 hours of the sample being drawn, and as sample was drawn on 12/11/24, it is too late now. Will notify ordering provider. * Addendum Note - Caterina Kathleen RN - 12/13/2024 9:01 AM EDTAddended by: CATERINA KATHLEEN on: 12/13/2024 09:01 AM Modules accepted: Orders * Telephone Encounter - Caterina Kathleen RN - 12/13/2024 9:00 AM EDT Called lab who stated that they will check to see if add on lab order requested by provider below can be completed. Requested fax of add on order. Faxed to [phone]. Confirmation received. * Telephone Encounter - Caterina Kathleen RN - 12/12/2024 4:21 PM EDT Called lab to inquire about add on labs. Lab currently closed. Will task to call when open. * Telephone Encounter - Caterina Kathleen RN - 12/12/2024 4:20 PM EDT ----- Message from Carmella Castro MD sent at 12/12/2024 4:09 PM EDT ----- Please can you request to lab to add on mycoplasma genitalium and ureaplasma urealyticum to recent urine sent Thanks documented in this encounter Plan of Treatment Upcoming Encounters Date Type Department Care Team (Late st Contact Info) Description 12/19/2024 3:30 PM EDT Office Visit [facility] [address] [place] [phone] Shea Dougherty MD [address] [place] [address] 12/24/2024 10:00 AM EDT Office Visit [facility] [address] [place] [phone] Wilkerson-Alberto, Jenifer, DDS [address] [place] [address] 12/31/2024 1:30 PM EDT Office Visit [facility] [address] [place] [phone] Carmella Sullivan MD [address] [place] [phone] 01/16/2025 3:45 PM EDT Office Visit [facility] [address] [place] [phone] Shea Dougherty MD [address] [place] [phone] Scheduled Orders Name Type Priority Associated Diagnoses Orde r Schedule Mycoplasma/Ureaplasma ??Panel Microbiology Routine Weight loss Expected: 12/13/2024 (Approximate), Expires: 12/13/2025 Urinalysis, Complete, with Reflex to Culture Lab Routine Weight loss Expected: 12/13/2024 (Approximate), Expires: 12/13/2025 documented as of this encounter Goals Goal Patient Goal Type Associated Problems Recent Progress Patient-Stated? Author Keep your medical appointments Lifestyle On track( 025 2:13 PM EDT) No Meño Aggarwal, RN documented as of this encounter Visit Diagnoses Diagnosis Weight loss Loss of weight documented in this encounter Additional Health Concerns Assessment Noted Time PHQ-9 Depression Total Score: 0 12/12/19 25 10:29 AM EDT documented as of this encounter Care Teams Trans Router Relationship Specialty Start Date End Date Carmella Sullivan MD [address] [place] [phone] PCP - General Internal Medicine 06/15/23 documented as of this encounter
--- OUTSIDE RECORDS SUMMARY | 2024-12-13 14:23 | XMS_ITS | Encounter Summary ---
Author Organization [employer] Address [address] [facility] 7 [place] [address] Care Team Providers Care Table Hand Name Role Phone Carmella Sullivan MD Primary Care Pro vider Encounter Details Date Type Department Care Team (Late st Contact Info) Description 03/07/2023 [facility] Information Management [address] [place] [address] Carmella Otero MD [address] [place] [address] Social History Tobacco Use Types Packs/Day Years [...] Description 12/19/2024 3:30 PM EDT Office Visit [facility] [address] [place] [phone] Shea Dougherty MD [address] [place] [address] 12/24/2024 10:00 AM EDT Office Visit [facility] [address] [place] [address] Jenifer Teixeira DDS [address] [place] [address] 12/31/2024 1:30 PM EDT Office Visit [facility] [address] [place] [address] Carmella Sullivan MD [address] [place] [address] 01/16/2025 3:45 PM EDT Office Visit [address] [address] Shea Dougherty MD [address] [place], [place] [phone] documented as of this encounter Visit Diagnoses Not on filedocumented in this encounter Care Teams Table Hand Relationship Specialty Start Date End Date Carmella Sullivan MD [address] [place] [phone] PCP - General Internal Medicine 06/15/23 documented as of this encounter
--- OUTSIDE RECORDS SUMMARY | 2024-12-13 14:23 | XMS_ITS | Encounter Summary ---
Author Organization [employer] Address [address] [facility] 7 [place] [address] Care Team Providers Care Harp Regulator Name Role Phone Carmella Sullivan MD Primary Care Pro vider Reason for Visit * Reason Onset Date Comments CHART PREP 12/10/2024 Encounter Details Date Type Department Care Team ([facility] st Contact Info) Description 12/10/2024 Telephone [facility] [address] [place] [address] Carmella Sullivan MD [address] [place] [address] CHART PREP Social History Tobacco Use Types [...] Miscellaneous Notes * Telephone Encounter - Janet Prajapati MA - 12/10/2024 3:18 PM EDT Chart Prep Labs: done FROM 07/08/24 Images: not applicable Referrals: not applicable Vaccines due: Hep B Screenings: not applicable Overdue care gaps: [id number] documented in this encounter Plan of Treatment Upcoming Encounters Date Type Department Care Team (Late st Contact Info) Description 12/19/2024 3:30 PM EDT Office Visit [facility] [address] [place] [address] Shea Dougherty MD [address] [place] [address] 12/24/2024 10:00 AM EDT Office Visit [facility] [address] [place] [address] Jenifer Teixeira DDS [address] [place] [address] 12/31/2024 1:30 PM EDT Office Visit [facility] [address] [place] [address] Carmella Sullivan MD [address] [place] [address] 01/16/2025 3:45 PM EDT Office Visit [facility] [address] [place] [address] [phone] Shea Dougherty MD [address] [place] [address] documented as of this encounter Goals Goal [...] documented as of this encounter Care Teams Harp Regulator Relationship Specialty Start Date End Date Carmella Sullivan MD [address] [place] [phone] PCP - General Internal Medicine 06/15/23 documented as of this encounter
--- OUTSIDE RECORDS SUMMARY | 2024-12-13 14:23 | XMS_ITS | Clinical Summary ---
Author Organization [employer] Address [address] [place] [address] Care Team Providers Care Psych Social Worker Name Role Phone Carmella Sullivan MD [...] Active Problems Problem Noted Date Diagnosed Date Abdominal pain 12/11/2024 Opioid use disorder in remission 10/29/2024 Weight [...] will benefit from Follow up with this bid writer during his OBAT appts. At this time Jeffrey Bradley meets criteria for Visit Diagnoses: Problem List Items Addressed This Visit Other Adjustment disorder with mixed anxiety and depressed mood Patient ready to address current needs No Strengths include willing to keep connected with this bid writer. PLAN: 1. Follow up with [facility]: Recommended for follow-up: during OBAT appts 2. Patient goal is to learn to process his son and maintain sobriety. 3. Behavioral Recommendations a. Use of coping skills b. Keep his OBATs appts c. [facility] follow up for support as needed. Resolved Problems Problem Noted Date Diagnosed Date Resolved Date Abdominal pain, epigastric 06/17/2023 0 01/23/2024 Left sciatic nerve pain 03/03/202301/05 Assessment & Plan (03/03/2023 3:40 PM EDT): Apply heat on affected area Reactive depression 11/25/2022 11/26/19 23 Encounters * This document contains information received from the source organization and may not represent a complete record from that organization. Date Type Department Care Team Description 12/12/2024 Telephone [facility] [address] [place] [phone] Carmella Sullivan MD Lab Orders 12/11/2024 10:15 AM EDT Office Visit [address] [address] Carmella Sullivan MD Annual physical exam (Primary Dx); Epigastric pain; Weight loss; Health care maintenance; Depression, major, single episode, moderate (CMS/HCC) 12/11/2024 Orders Only [address] [address] Carmella Sullivan MD Epigastric pain (Primary Dx); Weight loss 12/11/2024 [facility] Health Information Management [address] [place] [address] [phone] [address] ABD/PELVIS ORDER 12/11/2024 Travel 12/10/[address] [address] Carmella Sullivan MD CHART PREP 12/09/[address] [phone] Shea Dougherty MD Opioid dependence, uncomplicated (CMS/HCC) 11/28/2024 Patient Outreach [facility] [address] [place], [place] [phone] Carmella Sullivan MD Pre-visit Planning (SDOH negative, Tobacco screening negative. ) 11/21/2024 3:45 PM EDT Office Visit [facility] [address] [place] [phone] Shea Dougherty MD Opioid type dependence, continuous (CMS/HCC) (Primary Dx) 11/21/2024 Travel 11/12/2024 Refill [facility] [address] [place] [phone] Shea Dougherty MD Opioid dependence, uncomplicated (CMS/HCC) 10/24/2024 3:00 PM EDT Clinical Support [facility] [address] [place] [address] Meño Aggarwal RN Opioid dependence, uncomplicated (CMS/HCC) (Primary Dx) 10/24/2024 Travel 10/18/2024 Population Health Risk Score [facility] () Department [address] [place] [phone] Provider, Population Health Generic 10/15/2024 Refill [facility] [address] [place] [address] Shea Dougherty MD Opioid dependence, uncomplicated (CMS/HCC) 10/14/2024 Telephone [facility] [address] [place] [phone] Carmella Sullivan MD May recall 09/25/2024 10:35 AM EST Clinical Support [facility] [place] [place] [address] Meño Aggarwal RN Opioid type dependence, continuous (CMS/HCC) (Primary Dx) 09/25/2024 Travel 09/20/2024 Refill [facility] [address] [place] [address] Meño Aggarwal RN Opioid dependence, uncomplicated (CMS/HCC) [...] Description 12/19/2024 3:30 PM EDT Office Visit [facility] [address] [place] [address], [place] [address] Shea Dougherty MD [address] [place] [address] 12/24/2024 10:00 AM EDT Office Visit [facility] [address] [place] [phone] Jenifer Teixeira DDS [address] [place] [address] 12/31/2024 1:30 PM EDT Office Visit [facility] [address] [place] [phone] Carmella Sullivan MD [address] [place] [address] 01/16/2025 3:45 PM EDT Office Visit [address] [address] Shea Dougherty MD [address] [place] [address] Health Maintenance Due Date Last Done Comments Family Planning (PISQ) 2004 Hepatitis B Vaccines (1 of 3 - 19+ 3-dose series) 2008 COVID-19 Vaccine (2023- season) 2024 Influenza Vaccine (#1) 2024 06/15/2023 Dental Oral Exam 11/23/2024 05/24/2024, 05/10/2024 Dental Prophylaxis 11/23/2024 05/24/2024 Dental X-Ray: Bitewings 05/11/2025 05/10/2024 Alcohol/Substance Use Screening 06/20/2025 06/20/2024 SDOH Screening 11/28/2025 11/28/2024 Depression Screening 12/11/2025 12/11/2024, 12/12/19 25 Tobacco Screening 12/11/2025 12/11/2024 Dental X-Ray: Full Mouth 05/11/2027 05/10/2024 Lipid Panel 12/11/2029 12/11/2024, 06/15/2023 DTaP/Tdap/Td Vaccines (2 - Td or Tdap) 06/15/2033 06/15/2023 Zoster Vaccines (1 of 2) 2039 RSV Patients and Patients Aged 60 years or older (1 - 1-dose 75+ series) 2064 Hepatitis A Vaccines Aged Out 11/25/2022 No long er eligible based on patient's age to complete this topic HIV Screening Completed 12/11/2024, 02/05, 06/15/2023, Additional history exists Hepatitis C Screening Completed 12/11/2024 , 02/27/2024, 06/15/2023, Additional history exists HIB Vaccines Aged Out No longer eligi [...] 49) Years) Aged Out No longer eligible based on [...] 025 2:13 PM EDT) No Meño Aggarwal, photographer's model Procedure Name Priority Date/Time Associated Diagnosis Comments URINALYSIS, COMPLETE, WITH REFLEX TO CULTURE Routine 12/11/2024 12:11 PM EDT Weight loss FERRITIN Routine 12/11/2024 12:11 PM EDT Annual physical exam IRON AND TOTAL IRON BINDING CAPACITY Routine 12/11/2024 12:11 PM EDT Annual physical exam TSH W/REFLEX TO FT4 Routine 12/11/2024 1 2:11 PM EDT Annual physical exam SYPHILIS SCREEN Routine 12/11/2024 12:11 PM EDT Annual physical exam LIPID PANEL, STANDARD Routine 12/11/2024 12:11 PM EDT Annual physical exam HIV 1/2 ANTIGEN/ANTIBODY, FOURTH GENERATION W/RFL Routine 12/11/2024 12:11 PM EDT Annual physical exam HEPATITIS C [...] Routine 12/11/2024 11:58 AM EDT Epigastric pain CULTURE, URINE, ROUTINE Routine 12/11/2024 12:00 AM EDT Epigastric pain POCT BALJINDER-14 URINE DRUG SCREEN Routine 11/21/2024 [...] for dental examination Dental caries Dental calculus from Last 3 Months or Most Recently Relevant to Health Maintenance Results * Syphilis Screen (12/11/2024 12:11 PM EDT) Syphilis Screen Nonreactive Nonreactive [facility] Blood 12/11/2024 12:1 1 PM EDT 12/11/2024 1:28 PM EDT us Carmella Castro MD LAB BLOOD ORDERAB LES Final Result [facility] [address] [place] [phone] * (ABNORMAL) Urinalysis, Complete, with Reflex to Culture (12/11/2024 12:11 PM EDT) Color Urine Dark Yellow [facility] Appearance Urine Clear [facility] PH 5.5 5.0 - 9.0 [facility] Glucose Urine UA Negative Negative mg/dL [facility] Urine Blood Negative Negative [facility] Specific Runge - Urine >=1.030(H) 1.005 - 1.025 [facility] Urine Protein Trace Neg-Trace mg/dL [facility] Urine Ketones 15 Negative mg/dL [facility] Nitrite Urine Negative Negative [facility] Leukocyte Esterase Urine Trace(A) Negative [facility] RBC Urine 0-2 0 - 2 /HPF [facility] Urine WBC 21-50(A) 0 - 5 /HPF [facility] Urine Squamous Epithelial Cell 6-10 0 - 2 /HPF [facility] Urine Bacteria None Seen None Seen [facility] Hyaline Casts, Urine 0-2 0 - 2 /LPF [facility] Urine 12/11/2024 12:1 1 PM EDT 12/11/2024 1:12 PM EDT Narrative [facility] - 12/11/2024 1:43 PM EDT Urine, Clean Catch us Carmella Castro MD LAB URINE ORDERAB LES Final Result Performing Organization Address City/[facility]/ZIP Co de Phone Number [facility] [address] [place] [phone] * TSH with Reflex to Free T4 (12/11/2024 12:11 PM EDT) TSH reflex Free T4 0.88 0.32 - 4.0 uIU/mL [facility] Blood 12/11/2024 12:1 1 PM EDT 12/11/2024 1:38 PM EDT us Carmella Castro MD LAB BLOOD ORDERAB LES Final Result Performing Organization Address [facility] Co de Phone Number [facility] [address] [place] [address] [phone] * Hepatitis C Antibody with Reflex to HCV, RNA, Quantitative, Real-Time PCR (12/11/2024 12:11 PM EDT) Hepatitis C Antibody Nonreactive Nonreactive [facility] Comment:Antibodies to HCV no t detected; does not exclude early acuteHCV infection. Blood Venous blood specimen / Unknown 12/11/2024 12:11 PM EDT 12/11/2024 1:28 PM EDT Carmella Castro MD LAB BLOOD ORDERAB LES Final Result Performing Organization Address [facility]/ZIP Co de Phone Number [facility] [address] [place] [phone] * Iron And Total Iron Binding Capacity (12/11/2024 12:11 PM EDT) [facility] Iron 96 45 - 160 mcg/dL [facility] Total Iron Binding Capacity 245 228 - 428 mcg/dL [facility] Percent Iron Saturation 39 15 - 50 % [facility] Unsaturated Iron Binding 149 ug/dL [facility] Blood Venous blood specimen / Unknown 12/11/2024 12:11 PM EDT 12/11/2024 1:38 PM EDT Carmella Castro MD LAB BLOOD ORDERAB LES Final Result Performing Organization Address [facility] Co de Phone Number [facility] [address] [place] [phone] * Chlamydia/N. Gonorrhoeae RNA, TMA, Urogenitial (12/11/2024 12:11 PM EDT) [facility] CT PCR NOT DETECTED Not Detect. [facility] Comment:A not detected test result [...] psychologicalconsequences. NG PCR NOT DETECTED Not Detect. [facility] Comment:A not detected test result [...] PM EDT 12/11/2024 1:12 PM EDT Narrative [facility] - 12/11/2024 2:56 PM EDT Urine us Carmella Castro MD LAB MICROBIOLOGY - GENERAL ORDERABLES Final Result Performing Organization Address City/[facility]/ZIP Co de Phone Number [facility] [address] [place] [phone] * Hepatitis B surface antigen, EIA (12/11/2024 12:11 PM EDT) Hepatitis B Surface Ag Negative Negative [facility] Blood Venous blood specimen / Unknown 12/11/2024 12:11 PM EDT 12/11/2024 1:28 PM EDT us Carmella Castro MD LAB BLOOD ORDERAB LES Final Result Performing Organization Address [facility]/ZIP Co de Phone Number [facility] [address] [place] [phone] * Hepatitis B Core Antibody, Total (12/11/2024 12:11 PM EDT) Hepatitis B Core Antibody Nonreactive Nonreactive [facility] Blood Venous blood specimen / Unknown 12/11/2024 12:11 PM EDT 12/11/2024 1:28 PM EDT Carmella Castro MD LAB BLOOD ORDERAB LES Final Result Performing Organization Address City/[facility]/ZIP Co de Phone Number [facility] [address] [place] [phone] * HIV-1/2 Antigen and Antibodies, Fourth Generation, with Reflexes (12/11/2024 12:11 PM EDT) HIV AB/AG Nonreactive Nonreactive [facility] Comment:HIV-1 p24 Ag and/or HIV-1/HIV-2 Ab not detected.A test result that is nonreactive does not exclude thepossibility of exposure to or infection with HIV-1 and/orHIV-2. Nonreactive results in this assay for individualswith prior exposure to HIV-1 and/or HIV-2 may be due toantigen and antibody levels that are below the limit ofdetection of this assay.The Go Try It [employer] HIV Ag/Ab Combo assay result andsupplemental assay results should be interpreted inconjunction with the patient's clinical presentation,history and other laboratory results. If the results areinconsistent with clinical evidence, additional testing issuggested to confirm the result. Blood Venous blood specimen / Unknown 12/11/2024 12:11 PM EDT 12/11/2024 1:28 PM EDT us Carmella Castro MD LAB BLOOD ORDERAB LES Final Result Performing Organization Address City/[facility]/ZIP Co de Phone Number [facility] [address] [place] [phone] * Hepatitis B Surface Antibody, Qualitative (12/11/2024 12:11 PM EDT) [facility] ~Hepatitis B Surface Antibody NONREACTIVE Nonreactive [facility] Comment:Nonreactive: < 8.00 mIU/mL Blood Venous blood specimen / Unknown 12/11/2024 12:11 PM EDT 12/11/2024 1:28 PM EDT us Carmella Castro MD LAB BLOOD ORDERAB LES Final Result [facility] [address] [place] [phone] * CBC (12/11/2024 12:11 PM EDT) [facility] White Blood Count 6.4 4.8 - 10.8 X10*3/uL [facility] Red Blood Count 5.14 4.60 - 5.80 X10*6/uL [facility] Hemoglobin 14.0 14.0 - 18.0 g/dl [facility] Hematocrit 42.9 42.0 - 52.0 % [facility] Mean Corpuscular Volume 83.5 80.0 - 98.0 fL [facility] Mean Corpuscular Hemoglobin 27.2 27.0 - 33.0 pg [facility] Mean Corpuscular HGB Conc 32.6 31.0 - 36.0 g/dl [facility] Red Cell Distribution Width 12.1 11.0 - 16.0 % [facility] Platelet Count 256 160 - 400 X10*3/uL [facility] Mean Platelet Volume 12.1 9.4 - 12.4 fL [facility] NRBC Pct Auto 0.0 0.0 - 0.2 /100WBC [facility] NRBC Abs Auto 0.000 0.0 - 0.012 X10*3/uL [facility] Blood Venous blood specimen / Unknown 12/11/2024 12:11 PM EDT 12/11/2024 1:38 PM EDT us Carmella Castro MD LAB BLOOD ORDERAB LES Final Result Performing Organization Address [facility]/ZIP Co de Phone Number [facility] [address] [place] [phone] * Hemoglobin A1c (12/11/2024 12:11 PM EDT) Hemoglobin A1c 5.4 <6.0 % [facility] Comment:Hemoglobin A1C Refer ence Range Adults: 4.8 - 6.0 % Non diabetic: < 6.0 % Goal: < 7.0 %Additional Action Suggested: > 8.0 %Note: Hemoglobin A1c results are invalid for patients with abnormal amounts of HbF. Blood transfusions may impact the HbA1c concentration in the patient sample. Estimated Average Glucose 108 mg/dL [facility] Comment:eAG = Estimated ave rage glucose which is %A1C expressed asaverage glucose, using the formula of the P1U-XlgiyphUgmenpm Glucose study (ADAG), Diabetes Care, Vol.31,#8,2007 Blood Venous blood specimen / Unknown 12/11/2024 12:11 PM EDT 12/11/2024 1:38 PM EDT us Carmella Castro MD LAB BLOOD ORDERAB LES Final Result Performing Organization Address [facility] Co de Phone Number [facility] [address] [place] [phone] * (ABNORMAL) Ferritin (12/11/2024 12:11 PM EDT) Ferritin 290(H) 20 - 250 ng/mL [facility] Blood Venous blood specimen / Unknown 12/11/2024 12:11 PM EDT 12/11/2024 1:38 PM EDT Carmella Castro MD LAB BLOOD ORDERAB LES Final Result Performing Organization Address [facility]/ZIP Co de Phone Number [facility] [address] [place] [phone] * (ABNORMAL) Lipid Panel, Standard (12/11/2024 12:11 PM EDT) Triglycerides 43 <150 mg/dL [facility] Comment:Desirable Triglyceri de: less than 150 mg/dLBorderline High Triglyceride 150-199 mg/dLHigh Triglyceride: 200-499 mg/dLVery High Triglyceride: greater than or equal to 5OO mg/dL Cholesterol 173 <200 mg/dL [facility] Comment:Desirable Cholestero l: less than 200 mg/dLBorderline High Cholesterol: 200-239 mg/dLHigh Cholesterol: greater than 239 mg/dL LDL Cholesterol Calculated 101(H) <100 mg/dL [facility] Comment:Desirable LDL: less than 100 mg/dLNear Optimal/Above Optimal LDL: 110- 129 mg/dLBorderline High LDL: 130-159 mg/dLHigh LDL: 160-189 mg/dLVery High LDL: greater than or equal to 190 mg/dL HDL Cholesterol 64 >40 mg/dL [facility] Comment:Desirable HDL: great er than 40 mg/dL Note: This HDL assay may give artificially low results in patients with liver disease. Blood Venous blood specimen / Unknown 12/11/2024 12:11 PM EDT 12/11/2024 1:38 PM EDT us Carmella Castro MD LAB BLOOD ORDERAB LES Final Result [facility] [address] [place] [phone] * Comprehensive Metabolic Panel (12/11/2024 12:11 PM EDT) Sodium 140 135 - 145 mmol/L [facility] Potassium 4.0 3.3 - 5.1 mmol/L [facility] Chloride 103 96 - 108 mmol/L [facility] Carbon Dioxide 28 22 - 29 mmol/L [facility] Anion Gap 13 12 - 20 [facility] Urea Nitrogen (BUN) 13 9 - 16 mg/dL [facility] Creatinine, Serum 0.99 0.5 - 1.4 mg/dL [facility] Estimated Glomerular Filt Rate >60 [facility] Comment:Chronic Kidney Disea se: Estimated GFR < 60 mL/min/[id number] Kidney Disease: Estimated GFR < 15 mL/min/1.73m2 Glucose 85 60 - 115 mg/dL [facility] Calcium 10.0 8.4 - 10.2 mg/dL [facility] Bilirubin, Total 0.5 0.0 - 1.0 mg/dL [facility] Aspartate Amino Transferase 22 5 - 37 U/L [facility] Alanine Aminotransferase 17 0 - 40 U/L [facility] Total Protein 7.9 6.5 - 8.0 g/dL [facility] Albumin Level 5.0 3.5 - 5.0 g/dL [facility] Alkaline Phosphatase 58 39 - 117 U/L [facility] Blood Venous blood specimen / Unknown 12/11/2024 12:11 PM EDT 12/11/2024 1:38 PM EDT us Carmella Castro MD LAB BLOOD ORDERAB LES Final Result Performing Organization Address City/[facility]/ZIP Co de Phone Number [facility] [address] [place] [phone] * Helicobacter pylori, Urea Breath Test (12/11/2024 11:58 AM EDT) H. pylori Breath Test Negative Negative [facility] Comment:Antimicrobials, prot on pump inhibitors and bismuthpreparations are known to suppress H. pylori. Ingestingthese medications within two weeks prior to performing thebreath test may produce negative test results. A positiveresult is still clinically valid. Breath Oral cavity structure / Unknown 12/11/2024 11:58 AM EDT 12/11/2024 5:04 PM EDT us Carmella Castro MD LAB BLOOD ORDERAB LES Final Result [facility] [address] [place] [phone] * Culture, Urine, Routine (12/11/2024 12:00 AM EDT) Urine Urine specimen obtained by clean catch procedure / Unknown 12/11/2024 12/11/2024 Comment:UACC Narrative [facility] - 12/12/2024 11:12 AM EDT Urine Culture Report Result Urine Culture < 10,000 cfu/ml Specimen Source: Urine clean catch Carmella Castro MD LAB MICROBIOLOGY - GENERAL ORDERABLES Final Result [facility] [address] [place] [phone] * POCT BALJINDER-14 Urine Drug Screen (11/21/2024 [...] CARE TEST ENTER/MORENA T ORDERABLES Final Result from Last 3 Months Insurance [facility] [facility] * Guarantor: Jeffrey Frye Account Type Relation to Patient Date of Phone Billing Address Personal/Family Self [address] Care Teams Psych Social Worker Relationship Specialty Start Date End Date Carmella Sullivan MD [address] [place] [phone] PCP - General Internal Medicine 06/15/23
--- OUTSIDE RECORDS SUMMARY | 2024-12-13 14:23 | XMS_ITS | Encounter Summary ---
Author Organization [employer] Address [address] [place] [address] Care Team Providers Care Orthopedic Nurse Name Role Phone Carmella Sullivan MD Primary [...] Description 12/19/2024 3:30 PM EDT Office Visit [facility] [address] [place] [phone] Shea Dougherty MD [address] [place] [phone] 12/24/2024 10:00 AM EDT Office Visit [facility] [address] [place] [phone] Jenifer Teixeira DDS [address] [place] [phone] 12/31/2024 1:30 PM EDT Office Visit [facility] [address] [place] [phone] Camrella Sullivan MD [address] [place] [phone] 01/16/2025 3:45 PM EDT Office Visit [address] [address] Shea Dougherty MD [address] [place] [phone] documented as of this encounter Goals Goal [...] documented as of this encounter Care Teams Orthopedic Nurse Relationship Specialty Start Date End Date Carmella Sullivan MD [address] [place] [phone] PCP - General Internal Medicine 06/15/23 documented as of this encounter
--- OUTSIDE RECORDS SUMMARY | 2024-12-13 14:23 | XMS_ITS | Encounter Summary ---
Author Organization [employer] Address [address] [facility] [address] [place] [address] Care Team Providers Care Transplant Case Manager Name Role Phone Carmella Sullivan MD Primary Care Pro vider Reason for Referral * Imaging (STAT) - Authorized Specialty Diagnoses / Procedures Referred By Contac t Referred To Contact Radiology Diagnoses Epigastric pain Weight loss Procedures CT Abdomen Pelvis w/ Contrast Carmella Sullivan MD [address] [place] [phone] Phone: tel: fax: [address] Phone: tel: fax: Referral ID Status Reason Start Date Expiration Date V isits Requested Visits Authorized [id number] Authorized 12/11/2024 12/11/2025 1 1 Encounter Details Date Type Department Care Team (Late st Contact Info) Description 12/11/2024 Orders Only [facility] MEDICINE [address] [place] [address] [phone] Carmella Sullivan MD [address] [place] [address] [phone] Epigastric pain (Primary Dx); Weight loss Social History Tobacco Use Types [...] as of this encounter Miscellaneous Notes * Result Encounter Note - Carmella Castro MD - 12/11/2024 4:15 PM EDT Please can you request to lab to add on mycoplasma genitalium and ureaplasma urealyticum to recent urine sent Thanks documented in this encounter Plan of Treatment Upcoming Encounters Date Type Department Care Team (Late st Contact Info) Description 12/19/2024 3:30 PM EDT Office Visit [facility] MEDICINE [address] [place] [phone] Shea Dougherty MD [address] [place] [address] 12/24/2024 10:00 AM EDT Office Visit [facility] ADULT DENTAL [address] [place] [phone] Rhea-Jenifer Alberto, DDS [address] [place] [address] 12/31/2024 1:30 PM EDT Office Visit [facility] MEDICINE [address] [place] [phone] Carmella Sullivan MD [address] [place] [address] 01/16/2025 3:45 PM EDT Office Visit [address] [address] Shea Dougherty MD [address] [place] [phone] Scheduled Orders Name Type Priority Associated Diagnoses Orde r Schedule CT Abdomen Pelvis w/ Contrast Imaging STAT Epigastric pain Weight loss Expected: 12/11/2024, Expires: 12/11/2025 documented as of this encounter Goals Goal Patient Goal Type Associated Problems Recent Progress Patient-Stated? Author Keep your medical appointments Lifestyle On track( 025 2:13 PM EDT) No Meño Aggarwal, DONALDO documented as of this encounter Procedures Procedure Name Priority Date/Time Associated Diagnosis Comments CULTURE, URINE, ROUTINE Routine 12/11/2024 12:00 AM EDT Epigastric pain documented in this encounter Results * Culture, Urine, Routine (12/11/2024 12:00 AM EDT) Urine Urine specimen obtained by clean catch procedure / Unknown 12/11/2024 12/11/2024 Comment:UACC Narrative [facility] - 12/12/2024 11:12 AM EDT Urine Culture Report Result Urine Culture < 10,000 cfu/ml Specimen Source: Urine clean catch Carmella Castro MD LAB MICROBIOLOGY - GENERAL ORDERABLES Final Result Performing Organization Address City/State/[facility] Co de Phone Number [facility] [address] [place] [phone] documented in this encounter Visit Diagnoses Diagnosis Epigastric pain- Primary Abdominal pain, epigastric Weight loss Loss of weight documented in this encounter Additional Health Concerns Assessment Noted Time PHQ-9 Depression Total Score: 0 12/12/19 25 10:29 AM EDT documented as of this encounter Care Teams Transplant Case Manager Relationship Specialty Start Date End Date Carmella Sullivan MD [address] [place] [address] PCP - General Internal Medicine 06/15/23 documented as of this encounter
--- OUTSIDE RECORDS SUMMARY | 2024-12-13 14:23 | XMS_ITS | Encounter Summary ---
Author Organization [employer] Address [address] [facility] [address] [place] [address] Care Team Providers Care Molder Trimmer Name Role Phone Carmella Sullivan MD Primary Care Pro vider Reason for Visit * Reason Onset Date Comments CT ABD/PELVIS ORDER 12/11/2024 Encounter Details Date Type Department Care Team ([facility] st Contact Info) Description 12/11/2024 Telephone [facility] [address] [place] [phone] Carmella Sullivan MD [address] [place] [address] CT ABD/PELVIS ORDER Social History Tobacco Use Types Packs/Day Years [...] encounter Miscellaneous Notes * Telephone Encounter - Elvira Camp - 12/11/2024 3:41 PM EDT Incoming fax from [facility], Pt should have oral contrast for this history. Please review and advise documented in this encounter Plan of Treatment Upcoming Encounters Date Type Department Care Team (Late st Contact Info) Description 12/19/2024 3:30 PM EDT Office Visit [facility] MEDICINE [address] [place] [address] Shea Dougherty MD [address] [place] [address] 12/24/2024 10:00 AM EDT Office Visit [facility] ADULT DENTAL [address] [place] [address] Jenifer Teixeira DDS [address] [place] [address] 12/31/2024 1:30 PM EDT Office Visit [facility] MEDICINE [address] [place] [phone] Carmella Sullivan MD [address] [place] [phone] 01/16/2025 3:45 PM EDT Office Visit [facility] MEDICINE [address] [place] [address] [phone] Shea Dougherty MD [address] [place], [place] [phone] documented as of this encounter Goals Goal [...] documented as of this encounter Care Teams Molder Trimmer Relationship Specialty Start Date End Date Carmella Sullivan MD [address] [place] [address] [phone] PCP - General Internal Medicine 06/15/23 documented as of this encounter
[2024-12-13 16:31] LABS: Appearance Urine Clear; Color Urine Yellow; Glucose Urine UA Negative (Negative); Leukocyte Esterase Urine Negative (Negative); Nitrite Urine Negative (Negative); PH 5.5 (5.0-9.0); Specific Gravity - Urine 1.025 (1.005-1.025); Urine Blood Negative (Negative); Urine Ketones Trace mg/dL (Negative); Urine Protein Negative (Neg-Trace)
[2024-12-13 16:35] LABS: Bacteria Urine None Seen (None Seen); Hyaline Casts Urine 0-2 /LPF (0-2); RBC Urine 0-2 /HPF (0-2); Squamous Epithelial Cell Urine 0-2 /HPF (0-2); WBC Urine 0-5 /HPF (0-5)
[2024-12-19 14:04] LABS: Mycoplasma genitalium RNA Detected (Not Detected); Mycoplasma hominis PCR Not Detected (Not Detected); Ureaplasma parvum PCR Not Detected (Not Detected); Ureaplasma urealyticum PCR Not Detected (Not Detected)
== END 2024-12-13 14:16 | disposition home or self-care (01) ==
LOC: HO.HHCL 14:15
PROVIDERS: Visit Provider Student in an Organized Health Care Education/Training Program
DX: R63.4 Abnormal weight loss (principal)
CPT/HCPCS: 81001; 87563; 87798